=== PATIENT | female | born 1935 | race Caucasian/White ===

== ENCOUNTER → 2016-05-22 | Outpatient (CLI) | payer OTHER ==
[2014-04-27 15:00] VITALS: BP 115/64
[~2016-05-22] MED LIST: ACET500T33 PO; ATEN100T PO; ATEN50TA PO; CALC-67 PO; CELE100C PO; CELE200C PO; DIAZ5TAB PO; DILT300C4 PO; DULO60CA6 PO; FURO-68 PO; HYDR-2762 PO; LABE100T3 PO; LABE50DI IV; LEVO100T5 PO; LEVO750T31 PO; MELO-150 PO; MULT-658 PO; POTA20TA12 PO; PRED-220 PO; SIMV10TA3 PO
--- NOTE | 2016-05-23 00:01 | PAIN ---
DATE OF SERVICE: DIAGNOSES: 1. Lumbar radiculopathy with lumbar degenerative disk disease. 2. Bilateral shoulder joint pain with primary osteoarthritis of bilateral shoulders. HISTORY OF PRESENT ILLNESS: The patient is an 81-year-old female who returns for followup status post lumbar epidural steroid injections, last seen on 12/27/2015. The patient did very well with last injection with around 75%-80% improvement with her low back; however, her main complaint today is her shoulder pain, right greater than left. She has had some significant pain with this in the past and has done well with intra-articular cortisone injections, although it has been several years since she has had any of these with her right and left shoulder. The patient reports there is muscle aches and spasm in the shoulders as well, worse with abducting the shoulder or raising her arm above her head, is making it difficult for even to get dressed during the normal activities of daily living and daily chores. The patient reports it is becoming much more tender with abduction, also forward and rearward extension and rotation of the shoulder joints, right greater than left, but present bilaterally. The patient has audible popping and cracking sounds with right shoulder with manipulation and rotation of it, also with the left, but less audible. The patient reports significant pain into the biceps bilaterally, worse on the right than the left with movement of the shoulders. The patient rates her pain as 8 on a scale of 10, it grinds and pops, aching, spastic and sore. The patient reports no loss of motor function, but has significant arthritis in hands as well and this limits lot of her activity, regardless of the shoulder pain. PHYSICAL EXAMINATION: VITAL SIGNS: Today, blood pressure is 149/69, pulse 70, respirations 18, temperature is 98.2 degrees Fahrenheit, height is 5 feet 7 inches, and weight is 270 pounds. GENERAL: The patient is awake, alert, oriented, appropriate, very pleasant demeanor. The patient is accompanied by her daughter. HEENT: Head shows normocephalic, atraumatic. The patient wears eyeglasses. Oral cavity, mucous membranes are moist and pink. Extraocular muscles are intact and symmetrical. NECK: Shows anterior throat supple without palpable lymphadenopathy noted. Swallow reflex is symmetrical. Neck shows full rotational motion of cervical spine. CHEST: Shows normal on inspection. Breath sounds clear to auscultation bilaterally. HEART: Shows S1 and S2 clear. No murmurs are auscultated. ABDOMEN: Obese, soft, nontender, and nondistended. No palpable organomegaly is noted. No rebound or guarding demonstrated. BACK: Shows spine grossly midline. Normal appearing cervical lordotic curvature, slight increase in thoracic kyphosis and some mild flattening of lumbar lordotic curvature. Lumbar paraspinous musculature is moderately tender with deep palpation, but only diffusely without radiation. The patient shows good rotation and motion of the lumbar spine as well as extension and flexion without difficulty. The patient's upper extremities shows significant tenderness over the shoulder joints with palpation, not only over the acromioclavicular joint but into the medial aspect of the deltoid anteriorly as well as posteriorly significant pain with abduction of the shoulders, especially on the right side, past even 15-20 degrees with significant cracking and grinding audible even across the room with movement of the right shoulder, left shoulder less audible, but still present with significant tenderness with abduction as well as forward and rearward flexion and radiation to the bilateral biceps, ocean transportation intermediary strength is decreased on the left because of significant osteoarthritis of the hands, but is 5/5 on the right. Options were discussed with the patient. The patient's old chart was reviewed as her current medication regimen updated. Current review of systems updated today as well. We will schedule patient for bilateral intra-articular shoulder joint injections as she has done very well with these in the past with significant osteoarthritis of the shoulder joints and pain. We will have her preapproved and schedule her back to perform this in approximately 1 week as scheduled. The patient will continue with her Celebrex. Continue doing ____ exercises and as much rotational motion exercises that she is doing at home in the meantime. TAHIRA ARAYA MD DR: LILLY/devin JOB#: [id number] / [id number]
== END | disposition home or self-care (01) ==
LOC: PNCL 07:23
PROVIDERS: ATTEND Anesthesiology
DX: M51.16 Intervertebral disc disorders with radiculopathy, lumbar region (principal); M25.512 Pain in left shoulder; M25.511 Pain in right shoulder; M19.012 Primary osteoarthritis, left shoulder; M19.011 Primary osteoarthritis, right shoulder
CPT/HCPCS: G0463

== ENCOUNTER → 2016-06-12 | Outpatient (CLI) | payer OTHER ==
[2014-04-27 15:00] VITALS: BP 115/64
[~2016-06-12] MED LIST changes: +BUPIVACAINE MPF 0.25% 10 ML VIAL. ONE; +IOHEXOL 180 MG/ML 10 ML VIAL. ONE; +methylPREDNISolone ACETATE 40 MG/ML VIAL. ONE
--- NOTE | 2016-06-12 15:01 | PAIN ---
DATE OF SERVICE: 06/12/2016 PROGRESS NOTE FOR PAIN CLINIC DIAGNOSES: 1. Lumbar radiculopathy with lumbar degenerative disk disease. 2. Bilateral shoulder joint pain with primary osteoarthritis, bilateral shoulder joints. HISTORY OF PRESENT ILLNESS: The patient is an 81-year-old female who returns for followup, status post previous lumbar epidural steroid injections as well as shoulder joint injections. The patient has always done very well with these with about 75-100% improvement. The patient reports her shoulder joint has been significantly increasing in pain. We had seen her last month and had her preauthorized for injections with her insurance provider. The patient returns today reporting significant pain, bilateral shoulders, constant ache in the joints as well as the muscles of the joints, also some arthritic pain in the hands. We discussed some occupational therapy with her as well. She is still deciding if she will have to do this with her hands. The patient also is taking prednisone, which helps the pain significantly, but has only been taking 5 mg a day and requests to take more than this until she can see her primary care physician, we will take care of this for her in the meantime. The patient reports her pain now is a 5-6 on a scale of 10. It can be a lot higher with activity, worse with use of the shoulders, difficulty sleeping. The patient reports it as aching and dull, stabbing and occasionally sharper pains in the muscles and joints, worse on the right side than the left, but present bilaterally in the shoulders themselves. The patient reports no new motor or sensory deficits, no new bowel or bladder incontinence or other complaints. PHYSICAL EXAMINATION: VITAL SIGNS: Today, the patient's blood pressure is 143/67, pulse 71, respirations 18, temperature 97.9 degrees Fahrenheit. GENERAL: The patient is awake, alert, oriented, appropriate, has very pleasant demeanor. HEENT: Head shows normocephalic, atraumatic. Extraocular movements are intact and symmetrical. Oral cavity shows mucous membranes moist and pink. Dentition is intact. NECK: Shows anterior throat supple. CHEST: Shows breath sounds clear to auscultation bilaterally. HEART: Shows S1 and S2 clear. ABDOMEN: Obese, soft, nontender, nondistended. No palpable organomegaly is noted. No rebound or guarding demonstrated. BACK: The patient's back shows spine grossly midline, exaggeration mildly of thoracic kyphotic curvature as well as some flattening of lumbar lordotic curvature. Moderate tenderness with palpation in the lumbar distribution of the paraspinous muscles bilaterally, but without significant radiation. The patient's upper extremities show shoulders with significant pain with abduction of the shoulders as well as forward and rearward rotation of motion with some significant tenderness bilaterally with rotation especially with external rotation and abduction of the shoulders, which is limited to only about 15-20 degrees on the right and about 40 degrees on the left with significant pain in the shoulder joints themselves. PLAN: Options were discussed with the patient. At this time, the patient's old chart was reviewed as was her current medication regimen and updated. Current review of systems updated today as well. We will proceed with bilateral intra-articular shoulder joint injections with fluoroscopic guidance today. Risks were again discussed including, but not limited to bleeding, infection, possibility of intravascular injection sequelae, pneumothorax, side effects of steroid medication, spread of local anesthetic and numbness as well as exposure to fluoroscopy and poor results regarding pain control. The patient understands and wishes to proceed. The patient will return to the clinic in approximately 2 weeks for followup. She was given refill prescription of prednisone with instructions, side effects to be aware of as well, once daily at 10 mg until she can see her primary care physician to adjust this further if necessary. The patient also will consider occupational therapy. We discussed this with she and her daughter today as well for potential followup with increased mobility and occupational therapy movements with her hands. She does have some significant difficulty especially with the left hand. She will consider this, would like to talk to her primary care physician once again prior to going forward with this. I have directed her to call if she would like for us to set this up for her. The patient will follow up in approximately 2 weeks as scheduled and let us see. DIAGNOSIS: Bilateral primary osteoarthritis, shoulder joints. PROCEDURE: Bilateral intra-articular injections of the shoulder joints with fluoroscopic guidance using local anesthetic under sterile prep and drape using C-arm fluoroscopic guidance. Medications injected is a total of 80 mg Depo-Medrol, 40 mg per side and total of 4 mL of 0.25% bupivacaine, 2 mL per side and 2 mL at one per side of Isovue for contrast. CONDITION AT DISCHARGE: Stable. The patient tolerated the procedure well, had no complications. TAHIRA ARAYA MD DR: Anna JOB#: [id number] / [id number]
== END | disposition home or self-care (01) ==
LOC: PNCL 07:35
PROVIDERS: ATTEND Anesthesiology
DX: M19.012 Primary osteoarthritis, left shoulder (principal); M19.011 Primary osteoarthritis, right shoulder; M51.16 Intervertebral disc disorders with radiculopathy, lumbar region; E78.00 Pure hypercholesterolemia, unspecified; I10 Essential (primary) hypertension; I48.91 Unspecified atrial fibrillation; K21.9 Gastro-esophageal reflux disease without esophagitis; E03.9 Hypothyroidism, unspecified; Z90.710 Acquired absence of both cervix and uterus; Z90.49 Acquired absence of other specified parts of digestive tract; Z87.39 Personal history of other diseases of the musculoskeletal system and connective tissue
CPT/HCPCS: 20610; J1030; J3490

== ENCOUNTER → 2016-10-05 | Outpatient (CLI) | payer OTHER ==
[2014-04-27 15:00] VITALS: BP 115/64
[~2016-10-05] MED LIST changes: -BUPIVACAINE MPF 0.25% 10 ML VIAL. ONE; +CALC-31 PO; -CALC-67 PO; -IOHEXOL 180 MG/ML 10 ML VIAL. ONE; -MELO-150 PO; +MELO15TA23 PO; -methylPREDNISolone ACETATE 40 MG/ML VIAL. ONE
== END | disposition home or self-care (01) ==
LOC: PNCL 13:28
PROVIDERS: ATTEND Anesthesiology
DX: M51.37 Other intervertebral disc degeneration, lumbosacral region (principal); M19.012 Primary osteoarthritis, left shoulder; M47.897 Other spondylosis, lumbosacral region
CPT/HCPCS: G0463

== ENCOUNTER → 2016-10-19 | Outpatient (CLI) | payer OTHER ==
[2014-04-27 15:00] VITALS: BP 115/64
[~2016-10-19] MED LIST changes: +IOHEXOL 180 MG/ML 10 ML VIAL. ONE; +methylPREDNISolone ACETATE 40 MG/ML VIAL. ONE; +methylPREDNISolone ACETATE 80 MG/ML VIAL. ONE
--- NOTE | 2016-10-19 09:38 | PN ---
DATE: 10/19/2016 PROGRESS NOTE FOR PAIN CLINIC DIAGNOSES: 1. Lumbar radiculopathy with lumbar degenerative disk disease. 2. Bilateral shoulder joint pain with osteoarthritis. HISTORY OF PRESENT ILLNESS: The patient is an 81-year-old female who returns for followup status post previous lumbar epidural steroid injections with good results as well as intra-articular shoulder injections with also good results. The patient reports the pain has been returning now significantly. We did have a delay from her last visit secondary to insurance preapproval for her procedure today. This has been approved now for lumbar epidural steroid injection and she would like to proceed with that. The patient reports significant pain in the low back, bilateral lower extremities, radiating, worse on the right than the left at this time. The patient reports it as 7-8 on a scale of 10. It is worse. It is currently 5-6 on a scale of 10 today. The patient reports no new motor or sensory deficits, described the pain as aching, burning, tingling, shooting and stabbing, again worse on the right side, mostly in the posterolateral aspect of the hip, thigh and into the lower leg into the toes as well . The patient reports no other complaints. PHYSICAL EXAMINATION: VITAL SIGNS: The patient's blood pressure is 166/90, pulse 68, respirations 20, temperature 97.8 degrees Fahrenheit. GENERAL: The patient is awake, alert, oriented, appropriate, has a very pleasant demeanor. HEENT: Head shows normocephalic, atraumatic. Extraocular movements are intact and symmetrical. Oral cavity shows mucous membranes moist and pink. Dentition is intact. NECK: Shows anterior throat supple without palpable lymphadenopathy noted. Swallow reflex is symmetrical. CHEST: Shows normal on inspection. Breath sounds are clear to auscultation bilaterally. HEART: Shows S1 and S2 clear. ABDOMEN: Obese, soft, nontender, nondistended. No palpable organomegaly. There is no rebound or guarding demonstrated. BACK: Shows spine grossly in the midline, increased exaggeration of thoracic kyphosis is noted as well as some flattening of lumbar lordotic curvature. Lumbar paraspinous musculature shows symmetrical, but is tender with palpation bilaterally diffusely without radiation. EXTREMITIES: The patient's lower extremities show deep tendon reflexes at 1+ in the patellar and tendo calcaneus tendons. Motor exam is approximately 3-4 on a scale of 5 on the left ankle with 5/5 on the right. The patient's upper extremities show significant tenderness with rotational motion of the shoulders, both bilaterally with palpable crepitus and ratcheting of the joints with external rotation as well as anterior rotation. Options were discussed with the patient. The patient's old chart was reviewed as her current medication regimen and updated. Current review of systems updated today as well and we will proceed with lumbar epidural steroid injection with fluoroscopic guidance. Risks were again discussed including, but not limited to bleeding, infection, possibility of epidural hematoma, subsequent neurologic compromise, dural puncture, headaches, spinal cord and/or nerve damage, side effects of steroid medication and poor results regarding pain control. The patient understands and wishes to proceed. The patient will return to the clinic in approximately 2 weeks for followup, was counseled on return appointment, activity level and side effects to be aware of. DIAGNOSIS: Lumbar radiculopathy with lumbar degenerative disk disease. PROCEDURE: Lumbar epidural steroid injection in translaminar approach at L5-S1 level using C-arm fluoroscopic guidance under sterile prep and drape using local anesthetic. Medication injected is 120 mg Depo-Medrol plus 10 mL preservative-free normal saline and 2 mL of Isovue for contrast. CONDITION AT DISCHARGE: Stable. The patient tolerated the procedure well, had no complications. TAHIRA ARAYA MD DR: LILLY/devin JOB#: [id number] / [id number]
== END | disposition home or self-care (01) ==
LOC: PNCL 07:35
PROVIDERS: ATTEND Anesthesiology
DX: M51.16 Intervertebral disc disorders with radiculopathy, lumbar region (principal); E78.00 Pure hypercholesterolemia, unspecified; I48.91 Unspecified atrial fibrillation; I10 Essential (primary) hypertension; E03.9 Hypothyroidism, unspecified; M19.90 Unspecified osteoarthritis, unspecified site; K21.9 Gastro-esophageal reflux disease without esophagitis; Z90.710 Acquired absence of both cervix and uterus; Z86.69 Personal history of other diseases of the nervous system and sense organs; Z90.49 Acquired absence of other specified parts of digestive tract; Z86.39 Personal history of other endocrine, nutritional and metabolic disease; Z88.0 Allergy status to penicillin; Z88.8 Allergy status to other drugs, medicaments and biological substances
CPT/HCPCS: 62323; J1030; J1040

== ENCOUNTER → 2016-10-27 | Outpatient (CLI) | payer OTHER ==
[2014-04-27 15:00] VITALS: BP 115/64
[~2016-10-27] MED LIST changes: +BUPIVACAINE MPF 0.25% 10 ML VIAL. ONE
--- NOTE | 2016-10-27 20:00 | PAIN ---
DATE OF SERVICE: 10/27/2016 PROGRESS NOTE FOR PAIN CLINIC DIAGNOSES: 1. Lumbar radiculopathy with lumbar degenerative disk disease. 2. Bilateral shoulder joint pain with osteoarthritis primarily in the bilateral shoulders. HISTORY OF PRESENT ILLNESS: The patient is an 81-year-old who returns for followup status post lumbar epidural steroid injection on 10/19/2016. The patient did very well about 75% improvement in her low back and bilateral lower extremity pain. The patient reports her main complaint today is shoulder pain with the right slightly worse than the left, but increasing, now she has been using her walker more actively, as she has been up and around more as her back is feeling better and is starting to exacerbate some of the shoulder pain that she has had in the past. The patient reports no new motor or sensory deficits; however, no new bowel or bladder incontinence or other complaints. The patient reports she feels much better with lying down. She has no trouble with sleeping at night currently because of the back or the shoulders. The patient reports that the shoulders are aching and dull with occasional sharp shooting pain in the front of the shoulder as well, more with using her walker. The patient reports it is anywhere from a 3-7 on a scale 10 and it is 4 on a scale of 10 today. PHYSICAL EXAMINATION: VITAL SIGNS: The patient's blood pressure is 153/58, pulse 76, respirations 18, temperature 98.1 degrees Fahrenheit. Height is 5 feet 7 inches, weight is 275 pounds. GENERAL: The patient is awake, alert, oriented, appropriate, very pleasant demeanor. HEENT: Head shows normocephalic, atraumatic. Extraocular movements are intact, symmetrical. Oral cavity, mucous membranes are moist and pink. NECK: Shows anterior throat supple. CHEST: Shows normal on inspection. Breath sounds are clear to auscultation bilaterally. HEART: Shows S1 and S2 clear. ABDOMEN: Soft, nontender, nondistended. BACK: Shows spine grossly in the midline. Lumbar paraspinous musculature shows some very mild tenderness with palpation but only diffusely, in the lower lumbar distribution only very mildly. The patient shows good rotational motion as well as extension and flexion of lumbar spine without difficulty. EXTREMITIES: The patient's lower extremities showed deep tendon reflexes 1+ in the patellar and tendo calcaneus tendons. Motor exam is approximately 3-4 on a scale of 5 with left ankle and 5/5 on the right. The patient's upper extremities shows significant tenderness with palpation over the acromioclavicular joints bilaterally, a little more tender on the right than the left, but present and tender bilaterally. The patient shows difficulty with abduction of the shoulders, especially on the right side greater than about 40 degrees from midline with significant pain reported, also very tender with ____ and pain in the anterior and posterior aspect of the acromioclavicular joint itself. Motor exam is strong with manager administration strength rated about a 4 on a scale of 5 slightly more strong on the right than the left. The patient is right handed and does have some left-handed deformity from osteoarthritis. Biceps and triceps flexion is about 3-4 on a scale of 5, but is equal bilaterally. Peripheral pulses are 2+ in the radial distribution. Options were discussed with the patient and the patient's old chart was reviewed as her current medication regimen updated. Current review of systems updated today as well. We will proceed with bilateral acromioclavicular joint injections with fluoroscopic guidance. Risks were again discussed including, but not limited to bleeding, infection, possibility of intravascular injection sequelae, spread of local anesthetic and numbness, side effects of steroid medication and poor results regarding pain control. The patient understands and wishes to proceed. The patient will return to clinic in approximately 2 weeks for followup, was counseled on return appointment, activity level and side effects to be aware of. DIAGNOSIS: Bilateral primary osteoarthritis of acromioclavicular joints of the shoulder. PROCEDURE: Bilateral acromioclavicular joint injections with fluoroscopic guidance under sterile prep and drape using local anesthetic. MEDICATIONS INJECTED: A total of 120 mg Depo-Medrol plus 4 mL total of 0.25% bupivacaine and a total of 2 mL of Isovue for contrast. CONDITION AT DISCHARGE: Stable. The patient tolerated procedure well, had no complications. TAHIRA ARAYA MD DR: LILLY/devin JOB#: [id number] / [id number]
== END | disposition home or self-care (01) ==
LOC: PNCL 10:12
PROVIDERS: ATTEND Anesthesiology
DX: M19.012 Primary osteoarthritis, left shoulder (principal); M19.011 Primary osteoarthritis, right shoulder; E78.00 Pure hypercholesterolemia, unspecified; I48.91 Unspecified atrial fibrillation; I10 Essential (primary) hypertension; M19.90 Unspecified osteoarthritis, unspecified site; E03.9 Hypothyroidism, unspecified; Z90.49 Acquired absence of other specified parts of digestive tract; Z90.710 Acquired absence of both cervix and uterus; Z87.39 Personal history of other diseases of the musculoskeletal system and connective tissue; Z86.39 Personal history of other endocrine, nutritional and metabolic disease; Z86.69 Personal history of other diseases of the nervous system and sense organs; Z88.0 Allergy status to penicillin; Z88.8 Allergy status to other drugs, medicaments and biological substances
CPT/HCPCS: 20605; J1030; J1040; J3490

== ENCOUNTER 2018-04-05 11:44 | Inpatient (IN) | payer OTHER ==
[~2018-04-05] VITALS: Ht 172.7 cm; Wt 117.9 kg
[~2018-04-05 11:44] MED LIST changes: -BUPIVACAINE MPF 0.25% 10 ML VIAL. ONE; -HYDR-2762 PO; +HYDR-2765 PO; -IOHEXOL 180 MG/ML 10 ML VIAL. ONE; -LABE100T3 PO; +LABE100T5 PO; -methylPREDNISolone ACETATE 40 MG/ML VIAL. ONE; -methylPREDNISolone ACETATE 80 MG/ML VIAL. ONE
--- NOTE | 2018-04-05 12:37 | EKG ---
[facility] [address] [place] [id number] Test Date: 2018-04-05 Test Time: 11:55:36 Pat Name: CUCA CHAVEZ Department: Room: Gender: F [employer]ing Backer: PRAVEENA : 1935 Requested By: JOVANY CARLSON Order Number: [id number] Reading MD: Ceferino Fink Measurements Intervals Dry Run Rate: 87 P: 152 CO: 188 QRS: -153 QRSD: 86 T: 147 QT: 358 QTc: 431 Interpretive Statements SINUS RHYTHM QRS(T) CONTOUR ABNORMALITY CONSISTENT WITH ANTEROSEPTAL INFARCT PROBABLY OLD CONSISTENT WITH HIGH LATERAL INFARCT AGE UNDETERMINED ABNORMAL ECG Electronically Signed On 04-09-2018 9:39:16 RELATIONS DIRECTOR by Ceferino Fink
--- NOTE | 2018-04-05 12:48 | PHYS DOC ---
Past Medical History Past Medical History: A-Fib, High Cholesterol, Hypertension Additional Past Medical Histor: back pain Past Surgical History: Cholecystectomy, Hysterectomy, Tonsillectomy Alcohol Use: None Drug Use: None Adult General Chief Complaint Chief Complaint: shoulder and back pain HPI HPI 82-year-old female presenting to the emergency department today with upper back pain and shoulder pain for the past 3 days. The pain comes and goes. The patient has had a cough since [place] with minimal production which is currently improving significantly. Her family states she barely has a cough these days. The pain is now completely subsided. She denies any chest pain or shortness of breath. Review of systems is negative for abdominal pain vomiting fevers chills or diaphoresis. All other review of systems is negative unless otherwise noted in history of present illness. ED course: 82-year-old female presenting to the emergency department today with right upper back pain and shoulder pain. Afebrile with a normal heart rate. Saturating 94% on room air. Blood pressure is elevated. Normal examination other than mild pain with passive range of motion of the shoulder. Blood work shows normal white blood cell count. Chemistry panel shows elevated BUN and creatinine. 1.3 today. Previous was 1 on March 2014. Otherwise troponin is within normal limits. D-dimer is elevated. We will order a CT angiogram. In the interim given her hypoxia we will need to get a bed for her in the hospital. I spoke with Dr. Leary who accepts the patient for admission. Unfortunately because the patient's elevated creatinine and decreased GFR at our hospital policy will not allow the patient to get an angiogram of the chest. We will need to order a VQ scan. I will go ahead and get a bed requested for the patient. Dr. Leary and I spoke and I communicated the findings with him including a pending VQ scan at this time. Dr. Leary will follow up on the VQ scan. In the interim I will initiate 1 dose of Lovenox to cover in case the patient does have a pulmonary embolism. Basic bridge orders placed. Review of Systems Review of Systems SEE ABOVE. Current Medications Current Medications Current Medications Medications (Trade) Dose Ordered Sig/Mark Start Time Stop Time Status Last Admin Dose Admin Sodium Chloride 1,000 ml @ 100 mls/hr Q10H 04/05/18 14:54 04/05/18 18:53 Allergies Allergies Allergies Coded Allergies Type Severity Reaction Last Updated Verified gabapentin Allergy Severe Swelling 07/24/13 Yes Penicillins Adverse Reaction Intermediate Rash 07/24/13 Yes clonidine Adverse Reaction Intermediate "crazy feeling" 07/24/13 Yes Physical Exam Physical Exam SEE ABOVE Constitutional: Well developed, well nourished, no acute distress, non-toxic appearance. [] HENT: Normocephalic, atraumatic, bilateral external ears normal, oropharynx moist, no oral exudates, nose normal. [] Eyes: PERRLA, EOMI, conjunctiva normal, no discharge. [] Neck: Normal range of motion, no tenderness, supple, no stridor. [] Cardiovascular:Heart rate regular rhythm, no murmur [] Lungs & Thorax: Bilateral breath sounds clear to auscultation [] Abdomen: Bowel sounds normal, soft, no tenderness, no masses, no pulsatile masses. [] Skin: Warm, dry, no erythema, no rash. [] Back: No tenderness, no CVA tenderness. [] Extremities: No tenderness, no cyanosis, no clubbing, ROM intact, no edema. [] Neurologic: Alert and oriented X 3, normal motor function, normal sensory function, no focal deficits noted. [] Psychologic: Affect normal, judgement normal, mood normal. [] Current Patient Data Vital Signs Vital Signs Date Time Temp Pulse Resp B/P (MAP) Pulse Ox O2 Delivery O2 Flow Rate FiO2 04/05/18 12:04 98.4 94 16 169/80 (109) 94 Room Air 98.4 Lab Values Laboratory Tests Test 04/05/18 12:45 04/05/18 14:00 White Blood Count 10.6 x10^3/uL (4.0-11.0) Red Blood Count 4.67 x10^6/uL (3.50-5.40) Hemoglobin 14.3 g/dL (12.0-15.5) Hematocrit 43.3 % (36.0-47.0) Mean Corpuscular Volume 93 fL (79-100) Mean Corpuscular Hemoglobin 31 pg (25-35) Mean Corpuscular Hemoglobin Concent 33 g/dL (31-37) Red Cell Distribution Width 14.3 % (11.5-14.5) Platelet Count 332 x10^3/uL (140-400) Neutrophils (%) (Auto) 85 % (31-73) H Lymphocytes (%) (Auto) 8 % (24-48) L Monocytes (%) (Auto) 6 % (0-9) Eosinophils (%) (Auto) 1 % (0-3) Basophils (%) (Auto) 1 % (0-3) Neutrophils # (Auto) 9.0 x10^3uL (1.8-7.7) H Lymphocytes # (Auto) 0.8 x10^3/uL (1.0-4.8) L Monocytes # (Auto) 0.6 x10^3/uL (0.0-1.1) Eosinophils # (Auto) 0.1 x10^3/uL (0.0-0.7) Basophils # (Auto) 0.1 x10^3/uL (0.0-0.2) D-Dimer (Arti) 1.22 ug/mlFEU (0.00-0.50) H Sodium Level 142 mmol/L (136-145) Potassium Level 4.2 mmol/L (3.5-5.1) Chloride Level 99 mmol/L (98-107) Carbon Dioxide Level 32 mmol/L (21-32) Anion Gap 11 (6-14) Blood Urea Nitrogen 24 mg/dL (7-20) H Creatinine 1.3 mg/dL (0.6-1.0) H Estimated GFR (Cockcroft-Gault) 39.1 Glucose Level 164 mg/dL (70-99) H Calcium Level 9.4 mg/dL (8.5-10.1) Total Bilirubin 0.8 mg/dL (0.2-1.0) Direct Bilirubin 0.2 mg/dL (0.0-0.2) Aspartate Amino Transferase (AST) 19 U/L (15-37) Alanine Aminotransferase (ALT) 25 U/L (14-59) Alkaline Phosphatase 133 U/L (46-116) H Troponin I Quantitative < 0.017 ng/mL (0.000-0.055) WP-Lyb-V-Type Natriuretic Peptide 96 pg/mL (0-449) Total Protein 7.1 g/dL (6.4-8.2) Albumin 3.5 g/dL (3.4-5.0) Lipase 101 U/L (73-393) Urine Collection Type Unknown Urine Color Yellow Urine Clarity Clear Urine pH 7.0 Urine Specific [place] 1.015 Urine Protein Negative mg/dL (NEG-TRACE) Urine Glucose (UA) Negative mg/dL (NEG) Urine Ketones (Stick) Negative mg/dL (NEG) Urine Blood Negative (NEG) Urine Nitrite Negative (NEG) Urine Bilirubin Negative (NEG) Urine Urobilinogen Dipstick 1.0 mg/dL (0.2 mg/dL) Urine Leukocyte Esterase Negative (NEG) Urine RBC 0 /HPF (0-2) Urine WBC 0 /HPF (0-4) Urine Squamous Epithelial Cells Few /LPF Urine Bacteria 0 /HPF (0-FEW) Urine Hyaline Casts Few /HPF Urine Mucus Slight /LPF Laboratory Tests 04/05/18 12:45 Laboratory Tests 04/05/18 12:45 EKG EKG [] Radiology/Procedures Radiology/Procedures [] Course & Med Decision Making Course & Med Decision Making Pertinent Labs and Imaging studies reviewed. (See chart for details) [] Dragon Disclaimer Dragon Disclaimer This electronic medical record was generated, in whole or in part, using a voice recognition dictation system. Departure Departure Impression: Primary Impression: Hypoxia Disposition: ADMITTED INPATIENT Admitting Physician: Serge Leary Condition: STABLE Referrals: NON,STAFF (PCP) JOVANY CARLSON MD Apr 05, 2018 12:48
--- NOTE | 2018-04-05 12:54 | RAD ---
EXAM: CHEST 1 VIEW History: Hypoxia COMPARISON: 04/24/2014 TECHNIQUE: Single portable radiograph of the chest FINDINGS: Low lung volumes and technique accentuates heart size and pulmonary vascularity. Mild prominent appearing bilateral interstitial lung markings likely chronic interstitial changes. 1.8 cm linear opacity identified in the right midlung zone could be a pleural plaque or nodule. Severe degenerative changes bilateral shoulder joints. IMPRESSION: 1. A linear 1.8 cm opacity identified in the right midlung zone could be pleural plaque or nodule. Electronically signed by: Vincenzo Mcdermott MD (04/05/2018 12:50 PM) [id number]
[2018-04-05 12:56] LABS: BASO # 0.1 x10^3/uL (0.0-0.2); BASO % 1 % (0-3); EOS # 0.1 x10^3/uL (0.0-0.7); EOS % 1 % (0-3); HEMATOCRIT 43.3 % (36.0-47.0); HEMOGLOBIN 14.3 g/dL (12.0-15.5); LYMPH # 0.8 x10^3/uL (1.0-4.8); LYMPH % 8 % (24-48); MEAN CORPUSCULAR HEMOGLOBIN 31 pg (25-35); MEAN CORPUSCULAR HGB CONC 33 g/dL (31-37); MEAN CORPUSCULAR VOLUME 93 fL (79-100); MONO # 0.6 x10^3/uL (0.0-1.1); MONO % 6 % (0-9); NEUT % 85 % (31-73); PLATELET COUNT 332 x10^3/uL (140-400); RED BLOOD COUNT 4.67 x10^6/uL (3.50-5.40); RED CELL DISTRIBUTION WIDTH 14.3 % (11.5-14.5); WHITE BLOOD COUNT 10.6 x10^3/uL (4.0-11.0)
[2018-04-05 13:09] LABS: CALCIUM 9.4 mg/dL (8.5-10.1); CREATININE 1.3 mg/dL (0.6-1.0); GFR 39.1; POTASSIUM 4.2 mmol/L (3.5-5.1)
[2018-04-05 13:17] LABS: ALBUMIN 3.5 g/dL (3.4-5.0); DIRECT BILIRUBIN 0.2 mg/dL (0.0-0.2); TOTAL BILIRUBIN 0.8 mg/dL (0.2-1.0); TOTAL PROTEIN 7.1 g/dL (6.4-8.2)
[2018-04-05 14:31] LABS: BILIRUBIN,URINE NEGATIVE (NEG); CLARITY,URINE CLEAR; COLOR,URINE YELLOW; NITRITE,URINE NEGATIVE (NEG); PROTEIN,URINE NEGATIVE (NEG-TRACE)
[2018-04-05 14:51] LABS: HYALINE CASTS, URINE FEW /HPF; SQUAMOUS EPITHELIAL CELL,UR FEW /LPF
[2018-04-05 14:52] LABS: BACTERIA,URINE 0 /HPF (0-FEW); RBC,URINE 0 /HPF (0-2); WBC,URINE 0 /HPF (0-4)
[2018-04-05] MEDS ORDERED: IV NORMAL SALINE 1000ML BAG 1,000 ML IV SCH (14:54)
[2018-04-05 19:10] VITALS: BP 169/72
[2018-04-05] MEDS: HYDROcodone/APAP 7.5/325MG 1 TAB TABLET PO PRN (20:39)
[2018-04-05] MEDS: LABETALOL HCL 100 MG TABLET. PO SCH (20:40)
--- NOTE | 2018-04-05 21:32 | RAD ---
Examination: LUNG VENT/PERFUSION SCAN(VQ) History: soa x 1 month Comparison/Correlation: 04/05/2018 portable chest x-ray exam Findings: AP millicuries xenon-133 gas was administered. Ventilation imaging was performed in the posterior projection. No ventilation defect of point seen. 5 mCi technetium 99m MAA was intravenously administered. Relatively less perfusion at the right lateral costophrenic angle basilar region is questioned. There is no definite segmental mismatch defect. No significant mass effect. Impression: Low to intermediate probability for pulmonary embolism. Electronically signed by: Tomás Cheng MD (04/05/2018 9:27 PM) [facility]
[2018-04-05 23:15] VITALS: BP_SYST 127; BP_SYST 169; BP_DIAS 54; BP_DIAS 82
[2018-04-06] VITALS (7 sets, daily range): BP systolic 129–182; BP diastolic 44–87
[2018-04-06] MEDS: HYDROcodone/APAP 7.5/325MG 1 TAB TABLET PO PRN ×3 (02:42→17:35)
[2018-04-06 04:50] LABS: BASO # 0.1 x10^3/uL (0.0-0.2); BASO % 1 % (0-3); EOS # 0.2 x10^3/uL (0.0-0.7); EOS % 2 % (0-3); HEMATOCRIT 40.7 % (36.0-47.0); HEMOGLOBIN 13.6 g/dL (12.0-15.5); LYMPH # 1.8 x10^3/uL (1.0-4.8); LYMPH % 17 % (24-48); MEAN CORPUSCULAR HEMOGLOBIN 31 pg (25-35); MEAN CORPUSCULAR HGB CONC 33 g/dL (31-37); MEAN CORPUSCULAR VOLUME 93 fL (79-100); MONO # 1.1 x10^3/uL (0.0-1.1); MONO % 10 % (0-9); NEUT # 7.4 x10^3uL (1.8-7.7); NEUT % 70 % (31-73); PLATELET COUNT 333 x10^3/uL (140-400); RED BLOOD COUNT 4.37 x10^6/uL (3.50-5.40); RED CELL DISTRIBUTION WIDTH 14.3 % (11.5-14.5); WHITE BLOOD COUNT 10.6 x10^3/uL (4.0-11.0)
[2018-04-06 05:04] LABS: CALCIUM 9.3 mg/dL (8.5-10.1); CREATININE 1.1 mg/dL (0.6-1.0); GFR 47.4; POTASSIUM 3.3 mmol/L (3.5-5.1)
[2018-04-06] MEDS ORDERED: hydrALAZINE 20 MG/ML VIAL. IVP PRN (05:30)
[2018-04-06] MEDS: LABETALOL HCL 100 MG TABLET. PO SCH ×2 (08:08→21:18)
[2018-04-06] MEDS: ALPRAZolam 0.25 MG TABLET PO PRN ×2 (11:18→21:18)
--- NOTE | 2018-04-06 11:30 | PDOC ---
GENERAL General: see dictated H&P. VITAL SIGNS Vital Signs: Vital Signs Date Time Temp Pulse Resp B/P (MAP) Pulse Ox O2 Delivery O2 Flow Rate FiO2 04/06/18 09:37 20 Nasal Cannula 3.0 04/06/18 08:54 87 146/79 (101) 04/06/18 07:00 98.3 94 98.3 I & O I & O Intake and Output 04/06/18 07:01 Intake Total 880 ml Balance 880 ml Intake Oral 880 ml # Voids 1 ALLERGIES Allergies: Allergies Coded Allergies Type Severity Reaction Last Updated Verified gabapentin Allergy Severe Swelling 07/24/13 Yes Penicillins Adverse Reaction Intermediate Rash 07/24/13 Yes clonidine Adverse Reaction Intermediate "crazy feeling" 07/24/13 Yes MEDS Medications: Current Medications Medications (Trade) Dose Ordered Sig/Mark Start Time Stop Time Status Last Admin Dose Admin Acetaminophen/ Hydrocodone Bitart (Lortab 7.5/325) 1 tab PRN Q6HRS PRN 04/05/18 20:15 04/06/18 09:37 1 TAB Alprazolam (Xanax) 0.25 mg PRN Q8HRS PRN 04/06/18 10:45 04/06/18 11:18 0.25 MG Enoxaparin Sodium (Lovenox 120mg Syringe) 120 mg 1X ONCE 04/05/18 16:00 04/05/18 16:01 DC 04/05/18 16:00 120 MG Hydralazine HCl (Apresoline Inj) 10 mg PRN Q4HRS PRN 04/06/18 05:30 04/06/18 05:48 10 MG Labetalol HCl (Trandate) 200 mg BID 04/05/18 21:00 04/06/18 08:08 200 MG Sodium Chloride 1,000 ml @ 100 mls/hr Q10H 04/05/18 14:54 04/05/18 18:53 DC 04/05/18 14:54 100 MLS/HR LAB Lab: Laboratory Tests Test 04/05/18 12:45 04/05/18 14:00 04/06/18 03:50 White Blood Count 10.6 x10^3/uL (4.0-11.0) 10.6 x10^3/uL (4.0-11.0) Red Blood Count 4.67 x10^6/uL (3.50-5.40) 4.37 x10^6/uL (3.50-5.40) Hemoglobin 14.3 g/dL (12.0-15.5) 13.6 g/dL (12.0-15.5) Hematocrit 43.3 % (36.0-47.0) 40.7 % (36.0-47.0) Mean Corpuscular Volume 93 fL (79-100) 93 fL (79-100) Mean Corpuscular Hemoglobin 31 pg (25-35) 31 pg (25-35) Mean Corpuscular Hemoglobin Concent 33 g/dL (31-37) 33 g/dL (31-37) Red Cell Distribution Width 14.3 % (11.5-14.5) 14.3 % (11.5-14.5) Platelet Count 332 x10^3/uL (140-400) 333 x10^3/uL (140-400) Neutrophils (%) (Auto) 85 % (31-73) 70 % (31-73) Lymphocytes (%) (Auto) 8 % (24-48) 17 % (24-48) Monocytes (%) (Auto) 6 % (0-9) 10 % (0-9) Eosinophils (%) (Auto) 1 % (0-3) 2 % (0-3) Basophils (%) (Auto) 1 % (0-3) 1 % (0-3) Neutrophils # (Auto) 9.0 x10^3uL (1.8-7.7) 7.4 x10^3uL (1.8-7.7) Lymphocytes # (Auto) 0.8 x10^3/uL (1.0-4.8) 1.8 x10^3/uL (1.0-4.8) Monocytes # (Auto) 0.6 x10^3/uL (0.0-1.1) 1.1 x10^3/uL (0.0-1.1) Eosinophils # (Auto) 0.1 x10^3/uL (0.0-0.7) 0.2 x10^3/uL (0.0-0.7) Basophils # (Auto) 0.1 x10^3/uL (0.0-0.2) 0.1 x10^3/uL (0.0-0.2) D-Dimer (Arti) 1.22 ug/mlFEU (0.00-0.50) Sodium Level 142 mmol/L (136-145) 142 mmol/L (136-145) Potassium Level 4.2 mmol/L (3.5-5.1) 3.3 mmol/L (3.5-5.1) Chloride Level 99 mmol/L (98-107) 102 mmol/L (98-107) Carbon Dioxide Level 32 mmol/L (21-32) 31 mmol/L (21-32) Anion Gap 11 (6-14) 9 (6-14) Blood Urea Nitrogen 24 mg/dL (7-20) 19 mg/dL (7-20) Creatinine 1.3 mg/dL (0.6-1.0) 1.1 mg/dL (0.6-1.0) Estimated GFR (Cockcroft-Gault) 39.1 47.4 Glucose Level 164 mg/dL (70-99) 111 mg/dL (70-99) Calcium Level 9.4 mg/dL (8.5-10.1) 9.3 mg/dL (8.5-10.1) Total Bilirubin 0.8 mg/dL (0.2-1.0) Direct Bilirubin 0.2 mg/dL (0.0-0.2) Aspartate Amino Transf (AST/SGOT) 19 U/L (15-37) Alanine Aminotransferase (ALT/SGPT) 25 U/L (14-59) Alkaline Phosphatase 133 U/L (46-116) Troponin I Quantitative < 0.017 ng/mL (0.000-0.055) HW-Dwp-F-Type Natriuretic Peptide 96 pg/mL (0-449) Total Protein 7.1 g/dL (6.4-8.2) Albumin 3.5 g/dL (3.4-5.0) Lipase 101 U/L (73-393) Urine Collection Type Unknown Urine Color Yellow Urine Clarity Clear Urine pH 7.0 Urine Specific [place] 1.015 Urine Protein Negative mg/dL (NEG-TRACE) Urine Glucose (UA) Negative mg/dL (NEG) Urine Ketones (Stick) Negative mg/dL (NEG) Urine Blood Negative (NEG) Urine Nitrite Negative (NEG) Urine Bilirubin Negative (NEG) Urine Urobilinogen Dipstick 1.0 mg/dL (0.2 mg/dL) Urine Leukocyte Esterase Negative (NEG) Urine RBC 0 /HPF (0-2) Urine WBC 0 /HPF (0-4) Urine Squamous Epithelial Cells Few /LPF Urine Bacteria 0 /HPF (0-FEW) Urine Hyaline Casts Few /HPF Urine Mucus Slight /LPF LUCIANO ADAMS MD Apr 06, 2018 11:30
--- NOTE | 2018-04-06 11:59 | HP ---
ADMIT DATE: 04/05/[address] Alvarez Leary. CHIEF COMPLAINT AND HISTORY OF PRESENT ILLNESS: This 82-year-old white female began coughing on [place], had a respiratory type infection, which has improved; however, since that time and gradually has developed what was initially described as interscapular pain now moving more to the right side. It is worse with bending or twisting suggesting a muscular component. There is no worsening with breath. She has become progressively short of breath, which she has attributed to deconditioning, although she was not short of breath 3 weeks ago. She also feels like her heart beats very hard and very fast with any sort of exertion. She was found to be hypoxic in the Emergency Room, placed on oxygen with imaging in the Emergency Room showing a chest x-ray showing a 1.8-cm opacity identified in the right mid lung zone felt to be pleural plaque or nodule and had V/Q scanning done in addition showing low to intermediate probability for pulmonary embolism. Initial lab was remarkable for an unremarkable CBC, creatinine of 1.3, alkaline phosphatase of 133 and BNP of 96, troponin of 0.017. D-dimer elevated at 1.22. Urinalysis is unremarkable. PAST MEDICAL HISTORY: Remarkable for history of AFib, hyperlipidemia, hypertension as well as back pain. PAST SURGICAL HISTORY: Remarkable for cholecystectomy, hysterectomy, tonsillectomy. MEDICATIONS: Brought with the patient, listed on the computer and have been addressed. ALLERGIES: SHE IS ALLERGIC TO PENICILLIN, CLONIDINE, AND GABAPENTIN. SOCIAL HISTORY: Noncontributory. FAMILY HISTORY: Noncontributory. REVIEW OF SYSTEMS: As outlined in the history of present illness. PHYSICAL EXAMINATION: GENERAL: She is a well-developed, well-nourished, obese, white female in no acute distress, lying at rest. She has O2 present. VITAL SIGNS: Stable. She is afebrile. HEAD, EYES, EARS, NOSE AND THROAT: Unremarkable. NECK: Supple without adenopathy or thyromegaly. CHEST: Reveals clear breath sounds bilaterally. HEART: Regular rate and rhythm without S3, S4, or murmur. ABDOMEN: Soft, nontender, without hepatosplenomegaly or masses. EXTREMITIES: Without cyanosis, clubbing, or any pitting edema. NEUROLOGIC: She is intact. IMPRESSION: 1. Shortness of breath, palpitations and hypoxia following what sounds like a bronchitis about 3 weeks or so ago. 2. Other problems listed above. PLAN: The patient has been admitted. Pulmonary and Cardiology consult will be placed and the patient will be monitored, managed and treated appropriately. LUCIANO ADAMS MD DR: DONOVAN/devin JOB#: [id number] / [id number] ALVAREZ Keller MD
--- NOTE | 2018-04-06 12:43 | PDOC2 ---
CONSULT Date of Consult Date of Consult DATE: 04/06/18 TIME: 12:42 Reason for Consult Reason for Consult: Palpitations Referring Physician Referring Physician: Dr. Contreras Identification/Chief Complaint Chief Complaint Palpitations Source Source: Chart review, Patient History of Present Illness Reason for Visit: 82-year-old female with history of paroxysmal atrial fibrillation presented with interscapular pain and progressive shortness of breath. She also complained of intermittent episodes of palpitations mainly with exertion. She denied any orthopnea/PND or syncope. She was found to be hypoxic and admitted for further management. Past Medical History Cardiovascular: AFIB, HTN Pulmonary: No pertinent hx GI: GERD Heme/Onc: Cancer Musculoskeletal: low back pain, Osteoarthritis Rheumatologic: Fibromyalgia Renal/: Other Endocrine: Hypothyroidism Past Surgical History Past Surgical History: Appendectomy, Cholecystectomy, Mastectomy, Hysterectomy Current Problem List Problem List Problems Medical Problems: (1) Hypoxia Status: Acute Current Medications Current Medications Current Medications Sodium Chloride 1,000 ml @ 100 mls/hr Q10H IV Last administered on 04/05/18at 14:54; Start 04/05/18 at 14:54; Stop 04/05/18 at 18:53; Status DC Enoxaparin Sodium (Lovenox 120mg Syringe) 120 mg 1X ONCE SQ Last administered on 04/05/18at 16:00; Start 04/05/18 at 16:00; Stop 04/05/18 at 16:01; Status DC Acetaminophen/ Hydrocodone Bitart (Lortab 7.5/325) 1 tab PRN Q6HRS PRN PO PAIN Last administered on 04/06/18at 09:37; Start 04/05/18 at 20:15 Labetalol HCl (Trandate) 200 mg BID PO Last administered on 04/06/18at 08:08; Start 04/05/18 at 21:00 Hydralazine HCl (Apresoline Inj) 10 mg PRN Q4HRS PRN IVP ELEVATED BP, SEE COMMENTS Last administered on 04/06/18at 05:48; Start 04/06/18 at 05:30 Alprazolam (Xanax) 0.25 mg PRN Q8HRS PRN PO ANXIETY / AGITATION Last administered on 04/06/18at 11:18; Start 04/06/18 at 10:45 Furosemide (Lasix) 40 mg BID92 PO ; Start 04/06/18 at 14:00 Levothyroxine Sodium (Synthroid) 100 mcg DAILY06 PO ; Start 04/06/18 at 13:00 Potassium Chloride (Klor-Con) 20 meq BIDWMEALS PO ; Start 04/06/18 at 13:00 Prednisone (Prednisone) 5 mg DAILY PO ; Start 04/06/18 at 13:00 Simvastatin (Zocor) 10 mg QHS PO ; Start 04/06/18 at 21:00 Calcium/Vitamin D (Oscal D 500mg/ 200uts) 1 tab DAILYWBKFT PO ; Start 04/06/18 at 13:00 Celecoxib (CeleBREX) 200 mg DAILY PO ; Start 04/06/18 at 13:00 Diltiazem HCl (Cardizem 24hr Cd) 300 mg DAILY PO ; Start 04/06/18 at 13:00 Duloxetine HCl (Cymbalta) 60 mg DAILY PO ; Start 04/06/18 at 13:00 Multivitamins (Thera M Plus) 1 tab DAILY PO ; Start 04/06/18 at 13:00 Active Scripts Active Reported Prednisone (Prednisone) 10 Mg Tablet 5 Mg PO DAILY Celebrex (Celecoxib) 200 Mg Capsule 1 Cap PO DAILY Lasix (Furosemide) 40 Mg Tablet 40 Mg PO BID Hydrocodone-Apap 7.5-325 (Hydrocodone Bit/Acetaminophen) 1 Each Tablet 1 Each PO Q 6 HRS PRN Labetalol Hcl 100 Mg Tablet 200 Mg PO BID Calcium 500 + D Tablet (Calcium Carbonate/Vitamin D3) 1 Each Tablet 1 Each PO DAILY Centrum Silver Tablet (Multivits-Min/Fa/Lycopene/Lut) 1 Each Tablet 1 Each PO DAILY Cymbalta (Duloxetine Hcl) 60 Mg Capsule.dr 60 Mg PO DAILY Levothyroxine Sodium 100 Mcg Tablet 100 Mcg PO DAILY Simvastatin 10 Mg Tablet 10 Mg PO DAILY Potassium Chloride 20 Meq Tab.er.prt 20 Meq PO BID Diltiazem Xt (Diltiazem Hcl) 300 Mg Capsule.er 300 Mg PO DAILY Allergies Allergies: Coded Allergies: gabapentin (Verified Allergy, Severe, Swelling, 07/24/13) Penicillins (Verified Adverse Reaction, Intermediate, Rash, 07/24/13) clonidine (Verified Adverse Reaction, Intermediate, "crazy feeling", ) ROS PSYCHOLOGICAL ROS: No: Hallucinations Eyes: No Loss of vision HEENT: No: Epistaxis Respiratory: YES: Shortness of breath; No: Hemoptysis Cardiovascular: yes Palpitations Gastrointestinal: No Vomiting, No Diarrhea Genitourinary: No Hematuria Neurological: No Seizures Skin: No Rash Physical Exam General: Alert, mild distress HEENT: Atraumatic Lungs: Other (scattered crepitation bilaterally) Heart: Regular rate Abdomen: Soft, No tenderness Extremities: No edema Psych/Mental Status: Mood NL Vitals VITALS Vital Signs Date Time Temp Pulse Resp B/P (MAP) Pulse Ox O2 Delivery O2 Flow Rate FiO2 04/06/18 11:00 99.5 88 20 129/44 (72) 95 Nasal Cannula 3.0 99.5 Labs Labs Laboratory Tests Test 04/05/18 12:45 04/05/18 14:00 04/06/18 03:50 White Blood Count 10.6 x10^3/uL (4.0-11.0) 10.6 x10^3/uL (4.0-11.0) Red Blood Count 4.67 x10^6/uL (3.50-5.40) 4.37 x10^6/uL (3.50-5.40) Hemoglobin 14.3 g/dL (12.0-15.5) 13.6 g/dL (12.0-15.5) Hematocrit 43.3 % (36.0-47.0) 40.7 % (36.0-47.0) Mean Corpuscular Volume 93 fL (79-100) 93 fL (79-100) Mean Corpuscular Hemoglobin 31 pg (25-35) 31 pg (25-35) Mean Corpuscular Hemoglobin Concent 33 g/dL (31-37) 33 g/dL (31-37) Red Cell Distribution Width 14.3 % (11.5-14.5) 14.3 % (11.5-14.5) Platelet Count 332 x10^3/uL (140-400) 333 x10^3/uL (140-400) Neutrophils (%) (Auto) 85 % (31-73) 70 % (31-73) Lymphocytes (%) (Auto) 8 % (24-48) 17 % (24-48) Monocytes (%) (Auto) 6 % (0-9) 10 % (0-9) Eosinophils (%) (Auto) 1 % (0-3) 2 % (0-3) Basophils (%) (Auto) 1 % (0-3) 1 % (0-3) Neutrophils # (Auto) 9.0 x10^3uL (1.8-7.7) 7.4 x10^3uL (1.8-7.7) Lymphocytes # (Auto) 0.8 x10^3/uL (1.0-4.8) 1.8 x10^3/uL (1.0-4.8) Monocytes # (Auto) 0.6 x10^3/uL (0.0-1.1) 1.1 x10^3/uL (0.0-1.1) Eosinophils # (Auto) 0.1 x10^3/uL (0.0-0.7) 0.2 x10^3/uL (0.0-0.7) Basophils # (Auto) 0.1 x10^3/uL (0.0-0.2) 0.1 x10^3/uL (0.0-0.2) D-Dimer (Arti) 1.22 ug/mlFEU (0.00-0.50) Sodium Level 142 mmol/L (136-145) 142 mmol/L (136-145) Potassium Level 4.2 mmol/L (3.5-5.1) 3.3 mmol/L (3.5-5.1) Chloride Level 99 mmol/L (98-107) 102 mmol/L (98-107) Carbon Dioxide Level 32 mmol/L (21-32) 31 mmol/L (21-32) Anion Gap 11 (6-14) 9 (6-14) Blood Urea Nitrogen 24 mg/dL (7-20) 19 mg/dL (7-20) Creatinine 1.3 mg/dL (0.6-1.0) 1.1 mg/dL (0.6-1.0) Estimated GFR (Cockcroft-Gault) 39.1 47.4 Glucose Level 164 mg/dL (70-99) 111 mg/dL (70-99) Calcium Level 9.4 mg/dL (8.5-10.1) 9.3 mg/dL (8.5-10.1) Total Bilirubin 0.8 mg/dL (0.2-1.0) Direct Bilirubin 0.2 mg/dL (0.0-0.2) Aspartate Amino Transf (AST/SGOT) 19 U/L (15-37) Alanine Aminotransferase (ALT/SGPT) 25 U/L (14-59) Alkaline Phosphatase 133 U/L (46-116) Troponin I Quantitative < 0.017 ng/mL (0.000-0.055) BD-Kui-V-Type Natriuretic Peptide 96 pg/mL (0-449) Total Protein 7.1 g/dL (6.4-8.2) Albumin 3.5 g/dL (3.4-5.0) Lipase 101 U/L (73-393) Urine Collection Type Unknown Urine Color Yellow Urine Clarity Clear Urine pH 7.0 Urine Specific Cummings 1.015 Urine Protein Negative mg/dL (NEG-TRACE) Urine Glucose (UA) Negative mg/dL (NEG) Urine Ketones (Stick) Negative mg/dL (NEG) Urine Blood Negative (NEG) Urine Nitrite Negative (NEG) Urine Bilirubin Negative (NEG) Urine Urobilinogen Dipstick 1.0 mg/dL (0.2 mg/dL) Urine Leukocyte Esterase Negative (NEG) Urine RBC 0 /HPF (0-2) Urine WBC 0 /HPF (0-4) Urine Squamous Epithelial Cells Few /LPF Urine Bacteria 0 /HPF (0-FEW) Urine Hyaline Casts Few /HPF Urine Mucus Slight /LPF Laboratory Tests Test 04/05/18 12:45 04/05/18 14:00 04/06/18 03:50 White Blood Count 10.6 x10^3/uL (4.0-11.0) 10.6 x10^3/uL (4.0-11.0) Red Blood Count 4.67 x10^6/uL (3.50-5.40) 4.37 x10^6/uL (3.50-5.40) Hemoglobin 14.3 g/dL (12.0-15.5) 13.6 g/dL (12.0-15.5) Hematocrit 43.3 % (36.0-47.0) 40.7 % (36.0-47.0) Mean Corpuscular Volume 93 fL (79-100) 93 fL (79-100) Mean Corpuscular Hemoglobin 31 pg (25-35) 31 pg (25-35) Mean Corpuscular Hemoglobin Concent 33 g/dL (31-37) 33 g/dL (31-37) Red Cell Distribution Width 14.3 % (11.5-14.5) 14.3 % (11.5-14.5) Platelet Count 332 x10^3/uL (140-400) 333 x10^3/uL (140-400) Neutrophils (%) (Auto) 85 % (31-73) 70 % (31-73) Lymphocytes (%) (Auto) 8 % (24-48) 17 % (24-48) Monocytes (%) (Auto) 6 % (0-9) 10 % (0-9) Eosinophils (%) (Auto) 1 % (0-3) 2 % (0-3) Basophils (%) (Auto) 1 % (0-3) 1 % (0-3) Neutrophils # (Auto) 9.0 x10^3uL (1.8-7.7) 7.4 x10^3uL (1.8-7.7) Lymphocytes # (Auto) 0.8 x10^3/uL (1.0-4.8) 1.8 x10^3/uL (1.0-4.8) Monocytes # (Auto) 0.6 x10^3/uL (0.0-1.1) 1.1 x10^3/uL (0.0-1.1) Eosinophils # (Auto) 0.1 x10^3/uL (0.0-0.7) 0.2 x10^3/uL (0.0-0.7) Basophils # (Auto) 0.1 x10^3/uL (0.0-0.2) 0.1 x10^3/uL (0.0-0.2) D-Dimer (Arti) 1.22 ug/mlFEU (0.00-0.50) Sodium Level 142 mmol/L (136-145) 142 mmol/L (136-145) Potassium Level 4.2 mmol/L (3.5-5.1) 3.3 mmol/L (3.5-5.1) Chloride Level 99 mmol/L (98-107) 102 mmol/L (98-107) Carbon Dioxide Level 32 mmol/L (21-32) 31 mmol/L (21-32) Anion Gap 11 (6-14) 9 (6-14) Blood Urea Nitrogen 24 mg/dL (7-20) 19 mg/dL (7-20) Creatinine 1.3 mg/dL (0.6-1.0) 1.1 mg/dL (0.6-1.0) Estimated GFR (Cockcroft-Gault) 39.1 47.4 Glucose Level 164 mg/dL (70-99) 111 mg/dL (70-99) Calcium Level 9.4 mg/dL (8.5-10.1) 9.3 mg/dL (8.5-10.1) Total Bilirubin 0.8 mg/dL (0.2-1.0) Direct Bilirubin 0.2 mg/dL (0.0-0.2) Aspartate Amino Transf (AST/SGOT) 19 U/L (15-37) Alanine Aminotransferase (ALT/SGPT) 25 U/L (14-59) Alkaline Phosphatase 133 U/L (46-116) Troponin I Quantitative < 0.017 ng/mL (0.000-0.055) TW-Raj-O-Type Natriuretic Peptide 96 pg/mL (0-449) Total Protein 7.1 g/dL (6.4-8.2) Albumin 3.5 g/dL (3.4-5.0) Lipase 101 U/L (73-393) Urine Collection Type Unknown Urine Color Yellow Urine Clarity Clear Urine pH 7.0 Urine Specific Cummings 1.015 Urine Protein Negative mg/dL (NEG-TRACE) Urine Glucose (UA) Negative mg/dL (NEG) Urine Ketones (Stick) Negative mg/dL (NEG) Urine Blood Negative (NEG) Urine Nitrite Negative (NEG) Urine Bilirubin Negative (NEG) Urine Urobilinogen Dipstick 1.0 mg/dL (0.2 mg/dL) Urine Leukocyte Esterase Negative (NEG) Urine RBC 0 /HPF (0-2) Urine WBC 0 /HPF (0-4) Urine Squamous Epithelial Cells Few /LPF Urine Bacteria 0 /HPF (0-FEW) Urine Hyaline Casts Few /HPF Urine Mucus Slight /LPF Assessment/Plan Assessment/Plan 1. Shortness of breath: Pulmonary embolism ruled out. Patient does not have any clinical evidence for fluid overload. BNP level normal. Check 2-D echo to assess LV systolic function. Pulmonary team has been consulted 2. Paroxysmal atrial fibrillation presently complaining of intermittent episodes of palpitations that appeared to be mainly with exertion, most probably sinus tachycardia. She is presently in sinus rhythm. Continue to monitor on telemetry. We will consider event monitor as an outpatient. Continue Cardizem. 3. Hyperlipidemia: On statin therapy 4. Hypothyroidism: On levo thyroxine Thank you for your consultation MAGDALENA GARCIA MD Apr 06, 2018 12:43
[2018-04-06] MEDS ORDERED: predniSONE 5 MG TABLET PO SCH (13:00)
[2018-04-06] MEDS ORDERED: LEVOTHYROXINE 100 MCG TABLET PO SCH (13:00)
[2018-04-06] MEDS: POTASSIUM CHLORIDE 20 MEQ TABLET.ER. PO SCH ×2 (13:45→17:33)
[2018-04-06] MEDS: DULoxetine HCL 30 MG CAPSULE.DR PO SCH (13:45)
[2018-04-06] MEDS: MULTIVITAMIN with MINERAL TABLET. PO SCH (13:45)
[2018-04-06] MEDS: CALCIUM CARB/VIT D3 500/200 TABLET. PO SCH (13:45)
[2018-04-06] MEDS: FUROSEMIDE 40 MG TABLET. PO SCH (13:46)
[2018-04-06] MEDS: CELECOXIB 100 MG CAPSULE. PO SCH (13:47)
[2018-04-06] MEDS: SIMVASTATIN 10 MG TABLET PO SCH (21:18)
--- NOTE | 2018-04-06 21:55 | RAD ---
Bilateral lower extremity venous Doppler ultrasound History: Bilateral leg swelling. Comparison: None. Procedure: Color flow Doppler, Doppler spectral analysis, and 2D images are obtained with and without compression in the area of the common femoral vein, superficial femoral vein - femoral vein junction, main femoral vein (superficial femoral vein) and popliteal vein. Veins of the proximal calf are also imaged. Findings: There is normal color flow, augmentation, and compressibility of all visualized vein segments. No evidence of deep venous thrombus is present. IMPRESSION: No evidence of right or left lower extremity deep venous thrombosis. Electronically signed by: Tristen Loving MD (04/06/2018 9:51 PM) [facility]
[2018-04-07] MEDS: HYDROcodone/APAP 7.5/325MG 1 TAB TABLET PO PRN ×4 (01:03→21:06)
[2018-04-07 03:33] VITALS: BP 109/53
[2018-04-07] MEDS: LEVOTHYROXINE 112 MCG TABLET PO SCH (06:19)
[2018-04-07 07:00] VITALS: BP 144/69
[2018-04-07] MEDS: CELECOXIB 100 MG CAPSULE. PO SCH (08:45)
[2018-04-07] MEDS: POTASSIUM CHLORIDE 20 MEQ TABLET.ER. PO SCH ×2 (08:45→17:51)
[2018-04-07] MEDS: MULTIVITAMIN with MINERAL TABLET. PO SCH (08:45)
[2018-04-07] MEDS: CALCIUM CARB/VIT D3 500/200 TABLET. PO SCH (08:45)
[2018-04-07] MEDS: LABETALOL HCL 100 MG TABLET. PO SCH ×2 (08:46→21:06)
[2018-04-07] MEDS: DULoxetine HCL 30 MG CAPSULE.DR PO SCH (08:46)
[2018-04-07] MEDS: FUROSEMIDE 40 MG TABLET. PO SCH ×2 (08:48→13:26)
[2018-04-07] MEDS: predniSONE 10 MG TABLET PO SCH (08:50)
--- NOTE | 2018-04-07 10:45 | CONS ---
DATE OF CONSULTATION: ATTENDING PHYSICIAN: Dr. Leary. REASON FOR CONSULTATION: Chest pain, abnormal chest x-ray. HISTORY OF PRESENT ILLNESS: The patient is an 82-year-old pleasant female who is obese with a BMI of 39. No significant history of tobacco use. She says she had a respiratory tract infection around [place] time and she says the cough did get better. However, she was hospitalized because of pain in between the shoulder blades. She said she has a mild cough. However, the cough she thought may have caused the pain. She developed mild shortness of breath as well. No headaches, no nausea, vomiting or diarrhea noted. No leg edema. No dysuria. No focal weakness. Imaging study was performed. The chest x-ray revealed a parenchymal opacity in the right mid lung about 1.8 cm in size. The patient underwent venous Dopplers, which were negative for DVT. V/Q scan was also reviewed by me. There was no mismatched perfusion defect. There was a questionable less perfusion at the right costophrenic angle, which may be related to the parenchymal opacity. She states the pain has eased up. I have been asked to see her for further evaluation. PAST MEDICAL HISTORY: Significant for AFib, hyperlipidemia, hypertension. PAST SURGICAL HISTORY: Cholecystectomy, hysterectomy and tonsillectomy. MEDICATIONS: All reviewed as listed in the MRAD. ALLERGIES: PENICILLIN, CLONIDINE, AND GABAPENTIN. REVIEW OF SYSTEMS: Twelve-point system obtained. Pertinent positives discussed in my history of present illness, otherwise noncontributory. All systems that were negative were reviewed as well. SOCIAL HISTORY: Nonsmoker. PHYSICAL EXAMINATION: VITAL SIGNS: Reviewed. Pulse ox 94% on 3 liters, afebrile. HEENT: Sclerae nonicteric. NECK: Supple. LUNGS: Diminished breath sounds. CARDIOVASCULAR: Regular rate. ABDOMEN: Soft, obese. EXTREMITIES: With no pitting edema. LABORATORY DATA: Reviewed. White cell count 10.6, hemoglobin 13.6 and platelets are 333. BUN and creatinine is now 19 and 1.1. IMPRESSION: 1. Chest pain between shoulder blades along with some mild dyspnea. She has been recovering from bronchitis and has been coughing. There is no convincing evidence of pulmonary embolism by V/Q scan. Venous Dopplers are negative as well. There is, however, a parenchymal opacity in the right mid lung field, which may be contributing to chest pain and needs to be further explored by CT chest. Clinically, less likely aortic dissection. However, a CTA chest would be reasonable to pursue at this time. 2. There is no significant history of tobacco use. 3. Mild renal insufficiency present on admission, which is improving. 4. Abnormal D-dimer, which could be a nonspecific finding and can be seen in many other etiologies. RECOMMENDATIONS: 1. Discussed with Dr. Contreras, will do a CTA chest. 2. Gentle hydration. 3. Obtain echocardiogram. 4. We will look for any parenchymal density in the right lung on chest CT and also rule out pulmonary embolism. 5. We will hold off on antibiotics at present. 6. Continue oral prednisone. 7. Pain control with hydrocodone p.r.n. GABRIELLA OTTO MD DR: TERRY/devin JOB#: [id number] / [id number]
[2018-04-07 11:00] VITALS: BP 142/83
--- NOTE | 2018-04-07 11:17 | PDOC ---
PROGRESS NOTES Subjective Subjective Feeling better. Denied any palpitations today. Objective Objective Vital Signs Date Time Temp Pulse Resp B/P (MAP) Pulse Ox O2 Delivery O2 Flow Rate FiO2 04/07/18 08:47 80 144/69 04/07/18 08:20 18 94 Nasal Cannula 3.0 04/07/18 07:00 97.8 97.8 Intake and Output 04/07/18 07:01 Intake Total 620 ml Balance 620 ml Intake Oral 620 ml # Voids 5 # Bowel Movements 3 Physical Exam Abdomen: Soft, No tenderness Heart: Regular rate Extremities: No edema General: Alert, mild distress HEENT: Atraumatic Lungs: Other (scattered crepitation bilaterally) Psych/Mental Status: Mood NL Assessment Assessment 1. Shortness of breath: Pulmonary embolism ruled out. Patient does not have any clinical evidence for fluid overload. BNP level normal. Check 2-D echo to assess LV systolic function. Pulmonary team has been consulted 2. Paroxysmal atrial fibrillation presently complaining of intermittent episodes of palpitations that appeared to be mainly with exertion, most probably sinus tachycardia. She is presently in sinus rhythm. Telemetry did not show any significant arrhythmias. We will consider event monitor as an outpatient. Continue Cardizem. 3. Hyperlipidemia: On statin therapy 4. Hypothyroidism: On levo thyroxine Plan Plan of Care Problems Medical Problems: (1) Hypoxia Status: Acute Comment Review of Relevant I have reviewed the following items shantell (where applicable) has been applied. Medications Current Medications Calcium/Vitamin D (Oscal D 500mg/ 200uts) 1 tab DAILYWBKFT PO Last administered on 04/07/18at 08:45; Start 04/06/18 at 13:00 Celecoxib (CeleBREX) 200 mg DAILY PO Last administered on 04/07/18 08:45; Start 04/06/18 at 13:00 Diltiazem HCl (Cardizem 24hr Cd) 300 mg DAILY PO Last administered on 08:47; Start 04/06/18 at 13:00 Duloxetine HCl (Cymbalta) 60 mg DAILY PO Last administered on 04/07/18 08:46; Start 04/06/18 at 13:00 Furosemide (Lasix) 40 mg BID92 PO Last administered on 04/07/18at 08:48; Start 04/06/18 at 14:00 Levothyroxine Sodium (Synthroid) 100 mcg DAILY06 PO ; Start 04/06/18 at 13:00; Stop 04/06/18 at 13:28; Status DC Levothyroxine Sodium (Synthroid) 112 mcg DAILY06 PO Last administered on at 06:19; Start 04/07/18 at 06:00 Multivitamins (Thera M Plus) 1 tab DAILY PO Last administered on 04/07/18at 08: 45; Start 04/06/18 at 13:00 Potassium Chloride (Klor-Con) 20 meq BIDWMEALS PO Last administered on at 08:45; Start 04/06/18 at 13:00 Prednisone (Prednisone) 5 mg DAILY PO ; Start 04/06/18 at 13:00; Stop 04/06/18 at 13:28; Status DC Prednisone (Prednisone) 10 mg DAILY PO Last administered on 04/07/18at 08:50; Start 04/07/18 at 09:00 Simvastatin (Zocor) 10 mg QHS PO Last administered on 04/06/18at 21:18; Start at 21:00 Vitals/I & O Vital Sign - Last 24 Hours 04/06/18 04/06/18 04/06/18 04/06/18 13:46 15:00 17:35 19:58 Temp 98.5 98.2 98.5 98.2 Pulse 88 95 91 Resp 22 17 20 B/P (MAP) 129/44 146/79 (101) 132/66 (88) Pulse Ox 96 94 O2 Delivery Nasal Cannula Nasal Cannula Nasal Cannula O2 Flow Rate 3.0 3.0 3.0 04/06/18 04/06/18 04/06/18 04/07/18 19:59 21:18 23:19 01:03 Temp 98.4 98.4 Pulse 91 89 Resp 20 B/P (MAP) 132/66 136/57 (83) Pulse Ox 94 O2 Delivery Nasal Cannula Nasal Cannula Nasal Cannula O2 Flow Rate 3.0 3.0 3.0 04/07/18 04/07/18 04/07/18 04/07/18 03:33 07:00 07:17 08:20 Temp 97.9 97.8 97.9 97.8 Pulse 81 80 Resp 20 16 20 18 B/P (MAP) 109/53 (71) 144/69 (94) Pulse Ox 94 95 94 94 O2 Delivery Nasal Cannula Nasal Cannula Nasal Cannula Nasal Cannula O2 Flow Rate 3.0 3.0 3.0 3.0 04/07/18 04/07/18 08:46 08:47 Pulse 80 80 B/P (MAP) 144/69 144/69 Intake and Output 04/06/18 04/06/18 04/07/18 15:01 23:01 07:01 Intake Total 180 ml 340 ml 100 ml Balance 180 ml 340 ml 100 ml MAGDALENA GARCIA MD Apr 07, 2018 11:16
--- NOTE | 2018-04-07 13:34 | PN ---
DATE: 04/07/2018 LOCATION: Room 670. SUBJECTIVE: The patient is sleeping soundly throughout the exam. Breathing patterns consistent with underlying obstructive sleep apnea. OBJECTIVE: VITAL SIGNS: Stable. She is afebrile. Case discussed with Pulmonary who is adding a CTA of the chest. CHEST: Reveals decreased breath sounds, but clear. HEART: Regular rate and rhythm. ABDOMEN: Soft, obese, benign. EXTREMITIES: Reveal stable swelling. LABORATORY DATA: Creatinine decreased to 1.1 yesterday and it should be safe to use contrast for imaging. IMPRESSION: Posterior scapular area chest pain, right greater than left with shortness of breath and palpitations and hypoxia starting with what sounds like bronchitis 3 weeks or so ago. PLAN: Continue present care. Pulmonary input appreciated as well as Cardiology. Echo is ordered. LUCIANO ADAMS MD DR: DONOVAN/devin JOB#: [id number] / [id number]
[2018-04-07] MEDS ORDERED: IOHEXOL 300 MG/ML 100ML VIAL. IV ONE (14:15)
[2018-04-07] MEDS ORDERED: CONTRAST GIVEN. MC PRN (14:15)
[2018-04-07 15:00] VITALS: BP 134/68
--- NOTE | 2018-04-07 16:34 | CARD ---
MR#: [id number] Date of Study: 04/07/2018 Ordering Physician: MAGDALENA FINK, Referring Physician: ALVAREZ JEWELL Tech: Imani Matamoros RDCS APPROVED REPORT EXAM: Two-dimensional and M-mode echocardiogram with Doppler and color Doppler. Other Information Quality : FairHR: 87bpm Rhythm : NSR INDICATION Dyspnea 2D DIMENSIONS Left Atrium(2D)3.7 (1.6-4.0cm)IVSd1.1 (0.7-1.1cm) Aortic Root(2D)3.7 (2.0-3.7cm)LVDd4.8 (3.9-5.9cm) LVOT Diameter2.4 (1.8-2.4cm)PWd1.0 (0.7-1.1cm) LVDs3.4 (2.5-4.0cm)FS (%) 29.9 % SV62.8 mlLVEF(%)57.0 (>50%) CO5.4 L/min M-Mode DIMENSIONS Aortic Cusp Exc2.08 (1.5-2.0cm) Aortic Valve AoV Peak Hawk.144.1cm/sAoV VTI27.9cm AO Peak GR.8.3mmHgLVOT VTI 22.29cm AO Mean GR.5mmHgAVA (VTI)3.70cm2 Mitral Valve MV E Htidaxhs32.3cm/sMV [id number] MV A Kgpqkyzf04.5cm/sE/A Ratio0.8 MV A [id number] TDI Lateral E' P. V5.44cm/sMedial E' P. V6.83cm/s E/Lateral E'14.4E/Medial E'11.5 Tricuspid Valve TR P. [id number]/sTR Peak Gr.14mmHg LEFT VENTRICLE The left ventricle is normal size. There is normal left ventricular wall thickness. The left ventricu lar systolic function is normal. The ejection fraction is estimate at 65%. There is normal LV segment al wall motion. Transmitral Doppler flow pattern is Grade I-abnormal relaxation pattern. No left vent ricle thrombus noted on this study. There is no ventricular septal defect visualized. There is no lef t ventricular aneurysm. RIGHT VENTRICLE The right ventricle is normal size. There is normal right ventricular wall thickness. The right ventr icular systolic function is normal. ATRIA The left atrium size is normal. The right atrium size is normal. The interatrial septum is intact wit h no evidence for an atrial septal defect or patent foramen ovale as noted on 2-D or Doppler imaging. AORTIC VALVE The aortic valve is normal in structure and function. Doppler and Color Flow revealed no significant aortic regurgitation. There is no significant aortic valvular stenosis. There is no aortic valvular v egetation. MITRAL VALVE The mitral valve is normal in structure and function. There is no evidence of mitral valve prolapse. There is no mitral valve stenosis. Doppler and Color Flow revealed no mitral valve regurgitation note d. TRICUSPID VALVE The tricuspid valve is normal in structure and function. Doppler and Color Flow revealed trace tricus pid regurgitation. There is no tricuspid valve prolapse or vegetation. There is no tricuspid valve st enosis. PULMONIC VALVE The pulmonary valve is normal in structure and function. Doppler and Color Flow revealed no pulmonic valvular regurgitation. There is no pulmonic valvular stenosis. GREAT VESSELS The aortic root is normal in size. The IVC is normal in size and collapses >50% with inspiration. PERICARDIAL EFFUSION There is no pleural effusion. There is no evidence of significant pericardial effusion. Critical Notification Critical Value: No <Conclusion> Technically difficult study. The left ventricular systolic function is normal. The ejection fraction is estimate at 65%. There is normal LV segmental wall motion. Transmitral Doppler flow pattern is Grade I-abnormal relaxation pattern. Trace tricuspid regurgitation. There is no evidence of significant pericardial effusion. Signed by : Magdalena Fink, Electronically Approved : 04/07/2018 16:32:59
--- NOTE | 2018-04-07 17:03 | RAD ---
PQRS Compliance Statement: One or more of the following individualized dose reduction techniques were utilized for this examination: 1. Automated exposure control 2. Adjustment of the mA and/or kV according to patient size 3. Use of iterative reconstruction technique CT CHEST WITH CONTRAST, PULMONARY ANGIOGRAM History: CP/ ABNORMAL D DIMER Comparison: None. Technique: Helical CT of the chest was performed after the administration of 75 cc of Omnipaque 300 intravenous contrast according to PE protocol. Axial and coronal reconstructions were obtained. 3-D MIP images were constructed to better evaluate the pulmonary arteries. Findings: Pulmonary arteries are adequately opacified. There is no evidence of pulmonary embolism. There is no thoracic aortic dissection. Great vessels are normal caliber. No mediastinal adenopathy. Coronary artery disease. Cardiac size normal, no pericardial effusion. The central airways are patent. Mild bilateral lower lobe atelectasis. No pleural abnormality. Tiny cyst of right kidney. There is old compression fracture of T3 vertebral body. There is advanced degenerative arthropathy of the shoulders. There are partially healed right anterolateral rib fractures. IMPRESSION: There is no pulmonary embolus. Electronically signed by: Tristen Loving MD (04/07/2018 4:59 PM) [facility]
[2018-04-07 19:20] VITALS: BP 143/79
[2018-04-07] MEDS: SIMVASTATIN 10 MG TABLET PO SCH (21:05)
[2018-04-07] MEDS: ALPRAZolam 0.25 MG TABLET PO PRN (21:06)
[2018-04-07 23:40] VITALS: BP 119/51
[2018-04-08 03:11] VITALS: BP 166/82
[2018-04-08] MEDS: LEVOTHYROXINE 112 MCG TABLET PO SCH (06:37)
[2018-04-08] MEDS: HYDROcodone/APAP 7.5/325MG 1 TAB TABLET PO PRN (06:37)
[2018-04-08 07:05] VITALS: BP 139/78
[2018-04-08] MEDS: POTASSIUM CHLORIDE 20 MEQ TABLET.ER. PO SCH ×4 (08:00→17:25)
--- NOTE | 2018-04-08 08:19 | PDOC ---
Provider Note Provider Note vss, no temp, bp ok- cta neg re pe, no lesions of note- K+ low 3.3, echo wnl- will reduce lasix, inc kcl- rehab likely re poor functional status-- after discussion she wants to be DNR- see no other tests to do, may need O2 ALVAREZ JEWELL MD Apr 08, 2018 08:19
--- NOTE | 2018-04-08 08:19 | NUR ---
Chart review done. Spoke w/ RN then pt at bedside. Pt feels decline in status and feels would benefit from PT/OT Eval and Treat. Please order if agree. Addendum: 04/08/18 at 0819 by KE COBURN OT Amended: Links added.
[2018-04-08] MEDS: HYDROcodone/APAP 7.5/325MG 1 TAB TABLET PO SCH ×3 (08:40→17:25)
[2018-04-08] MEDS: MULTIVITAMIN with MINERAL TABLET. PO SCH (08:41)
[2018-04-08] MEDS: DULoxetine HCL 30 MG CAPSULE.DR PO SCH ×2 (08:42→20:16)
[2018-04-08] MEDS: LABETALOL HCL 100 MG TABLET. PO SCH ×2 (08:42→20:17)
[2018-04-08] MEDS: CELECOXIB 100 MG CAPSULE. PO SCH (08:42)
[2018-04-08] MEDS: predniSONE 10 MG TABLET PO SCH (08:43)
[2018-04-08] MEDS: CALCIUM CARB/VIT D3 500/200 TABLET. PO SCH (08:43)
[2018-04-08 10:23] VITALS: BP 144/68
--- NOTE | 2018-04-08 12:32 | PDOC ---
PULMONARY PROGRESS NOTES Subjective no soa, CP improving Vitals Vital Signs Date Time Temp Pulse Resp B/P (MAP) Pulse Ox O2 Delivery O2 Flow Rate FiO2 04/08/18 10:23 97.9 87 20 144/68 (93) 94 Nasal Cannula 2.0 97.9 General: Alert, Oriented X4, No acute distress Lungs: Clear Cardiovascular: S1 Abdomen: Soft Neuro Exam: Alert Extremities: No Edema Skin: Warm Medications Active Scripts Medications Dose Route/Sig Max Daily Dose Days Date Category Prednisone (Prednisone) 10 Mg Tablet 5 Mg PO DAILY 11/04/14 Reported Celebrex (Celecoxib) 200 Mg Capsule 1 Cap PO DAILY 04/24/14 Reported Lasix (Furosemide) 40 Mg Tablet 40 Mg PO BID 09/24/13 Reported Hydrocodone-Apap 7.5-325 (Hydrocodone Bit/Acetaminophen) 1 Each Tablet 1 Each PO Q 6 HRS PRN 07/24/13 Reported Labetalol Hcl 100 Mg Tablet 200 Mg PO BID 07/24/13 Reported Calcium 500 + D Tablet (Calcium Carbonate/Vitamin D3) 1 Each Tablet 1 Each PO DAILY 05/26/13 Reported Centrum Silver Tablet (Multivits-Min/Fa/Lycopene/Lut) 1 Each Tablet 1 Each PO DAILY 05/26/13 Reported Cymbalta (Duloxetine Hcl) 60 Mg Capsule.dr 60 Mg PO DAILY 05/26/13 Reported Levothyroxine Sodium 100 Mcg Tablet 100 Mcg PO DAILY 05/26/13 Reported Simvastatin 10 Mg Tablet 10 Mg PO DAILY 03/04/13 Reported Potassium Chloride 20 Meq Tab.er.prt 20 Meq PO BID 03/04/13 Reported Diltiazem Xt (Diltiazem Hcl) 300 Mg Capsule.er 300 Mg PO DAILY 03/04/[address] CHEST There is no pulmonary embolus. Impression . 1. Chest pain between shoulder blades along with some mild dyspnea. She has been recovering from bronchitis and has been coughing. There is no convincing evidence of pulmonary embolism by V/Q scan. Venous Dopplers are negative as well. CTA with no PE or aortic dissection or nodule. CP likely muscular 2. There is no significant history of tobacco use. 3. Mild renal insufficiency present on admission, which is improving. 4. Abnormal D-dimer, which could be a nonspecific finding and can be seen in many other etiologies. Plan . 1. Pain control 2. Gentle hydration. 3. echocardiogram.. 4. Add PO Abx for bronchitis 6. Continue oral prednisone. GABRIELLA OTTO MD Apr 08, 2018 12:32
[2018-04-08] MEDS: DOXYCYCLINE HYCLATE 100 MG TABLET PO SCH ×2 (13:49→20:18)
[2018-04-08 14:45] VITALS: BP 164/77
--- NOTE | 2018-04-08 14:55 | NUR ---
SW following pt for anticipated dc needs. Chart reviewed. Pt lives at home with family and is currently on 2L oxygen. PT/OT pending. SW will await for PT/OT recommendation to evaluate needs for SNU vs HH. SW will continue to follow. WOODY AGOSTO.
--- NOTE | 2018-04-08 17:53 | PDOC ---
CARDIO Progress Notes Date and Time Date of Service 04/08/18 Vitals Vitals Vital Signs Date Time Temp Pulse Resp B/P (MAP) Pulse Ox O2 Delivery O2 Flow Rate FiO2 04/08/18 17:25 94 Nasal Cannula 2.0 04/08/18 14:45 97.5 69 22 164/77 (106) 97.5 Weight Weight [ ] Input and Output Intake and Output Intake and Output 04/08/18 07:01 Intake Total 1010 ml Output Total 100 ml Balance 910 ml Intake Oral 1010 ml Output Urine Total 100 ml # Voids 1 # Bowel Movements 1 Physical Exam HEENT: Neck Supple W Full Motion Chest: Symmetric LUNGS: Clear to Auscultation Heart: S1S2 Abdomen: Soft N/T Extremities: No Edema Neurology: alert, oriented, follow commands Assessment Assessment 1. Chest pain, non-cardiac. MSK in origin secondary to persistent cough. 2. Dyspnea; PE ruled out. No clinical evidence of CHF. Most probably secondary to bronchitis. Echo showed LVEF 65% 2. PAFIB; having intermittent palpitations. No significant arrhythmias noted on tele. Presently in sinus rhythm. 3. Hyperlipidemia: On statin therapy 4. Hypothyroidism: On levo thyroxine 5. Hypokalemia Recommendations Continue Cardizem for rate control Add ASA for stroke prevention Consider event monitor as an outpatient. Supportive care. PRASANNA MERRILL APRN Apr 08, 2018 17:53
[2018-04-08 19:00] VITALS: BP 163/84
[2018-04-08] MEDS: ALPRAZolam 0.25 MG TABLET PO PRN (20:16)
[2018-04-08] MEDS: LACTOBACILLUS RHAMNOSUS GG 1 CAPSULE. PO SCH (20:16)
[2018-04-08] MEDS: SIMVASTATIN 10 MG TABLET PO SCH (20:18)
[2018-04-08] MEDS: LIDOCAINE (700MG/PATCH) PATCH. TD SCH (21:00)
[2018-04-08 23:00] VITALS: BP 142/63
[2018-04-09 03:00] VITALS: BP 142/69
[2018-04-09] MEDS: HYDROcodone/APAP 7.5/325MG 1 TAB TABLET PO SCH ×4 (03:42→18:22)
[2018-04-09] MEDS: LEVOTHYROXINE 112 MCG TABLET PO SCH (06:20)
[2018-04-09] MEDS: FUROSEMIDE 40 MG TABLET. PO SCH (06:20)
[2018-04-09 07:00] VITALS: BP 147/66
--- NOTE | 2018-04-09 08:13 | PDOC ---
Provider Note Provider Note vss, O2 85 ra, noc study pending- will dc monitor, xr cerv/thor spine re pain- she wishes to go to rehab for a short time, sw in progress- will need O2 from now on, NOT on before ALVAREZ JEWELL MD Apr 09, 2018 08:13
[2018-04-09] MEDS: LIDOCAINE (700MG/PATCH) PATCH. TD SCH (08:15)
[2018-04-09] MEDS: CELECOXIB 100 MG CAPSULE. PO SCH (08:16)
[2018-04-09] MEDS: CALCIUM CARB/VIT D3 500/200 TABLET. PO SCH (08:17)
[2018-04-09] MEDS: MULTIVITAMIN with MINERAL TABLET. PO SCH (08:17)
[2018-04-09] MEDS: ASPIRIN ENTERIC COATED 81 MG TABLET.DR. PO SCH (08:17)
[2018-04-09] MEDS: LABETALOL HCL 100 MG TABLET. PO SCH ×2 (08:17→20:59)
[2018-04-09] MEDS: DOXYCYCLINE HYCLATE 100 MG TABLET PO SCH ×2 (08:17→20:59)
[2018-04-09] MEDS: predniSONE 10 MG TABLET PO SCH (08:18)
[2018-04-09] MEDS: LACTOBACILLUS RHAMNOSUS GG 1 CAPSULE. PO SCH ×2 (08:18→20:59)
[2018-04-09] MEDS: POTASSIUM CHLORIDE 20 MEQ TABLET.ER. PO SCH ×3 (08:18→18:22)
--- NOTE | 2018-04-09 08:47 | PDOC ---
PULMONARY PROGRESS NOTES Subjective NOT MOTE SOA Vitals Vital Signs Date Time Temp Pulse Resp B/P (MAP) Pulse Ox O2 Delivery O2 Flow Rate FiO2 04/09/18 08:17 81 147/66 04/09/18 08:00 Nasal Cannula 1.0 04/09/18 07:00 97.9 20 85 97.9 General: Alert, Oriented X4, No acute distress Lungs: Clear Cardiovascular: S1 Abdomen: Soft Neuro Exam: Alert Extremities: No Edema Skin: Warm Labs Laboratory Tests Test 04/09/18 05:20 Magnesium Level 2.2 mg/dL (1.8-2.4) Laboratory Tests Test 04/09/18 05:20 Magnesium Level 2.2 mg/dL (1.8-2.4) Medications Active Scripts Medications Dose Route/Sig Max Daily Dose Days Date Category Prednisone (Prednisone) 10 Mg Tablet 5 Mg PO DAILY 11/04/14 Reported Celebrex (Celecoxib) 200 Mg Capsule 1 Cap PO DAILY 04/24/14 Reported Lasix (Furosemide) 40 Mg Tablet 40 Mg PO BID 09/24/13 Reported Hydrocodone-Apap 7.5-325 (Hydrocodone Bit/Acetaminophen) 1 Each Tablet 1 Each PO Q 6 HRS PRN 07/24/13 Reported Labetalol Hcl 100 Mg Tablet 200 Mg PO BID 07/24/13 Reported Calcium 500 + D Tablet (Calcium Carbonate/Vitamin D3) 1 Each Tablet 1 Each PO DAILY 05/26/13 Reported Centrum Silver Tablet (Multivits-Min/Fa/Lycopene/Lut) 1 Each Tablet 1 Each PO DAILY 05/26/13 Reported Cymbalta (Duloxetine Hcl) 60 Mg Capsule.dr 60 Mg PO DAILY 05/26/13 Reported Levothyroxine Sodium 100 Mcg Tablet 100 Mcg PO DAILY 05/26/13 Reported Simvastatin 10 Mg Tablet 10 Mg PO DAILY 03/04/13 Reported Potassium Chloride 20 Meq Tab.er.prt 20 Meq PO BID 03/04/13 Reported Diltiazem Xt (Diltiazem Hcl) 300 Mg Capsule.er 300 Mg PO DAILY 03/04/[address] CHEST There is no pulmonary embolus. Impression . 1. Chest pain between shoulder blades along with some mild dyspnea. She has been recovering from bronchitis and has been coughing. There is no convincing evidence of pulmonary embolism by V/Q scan. Venous Dopplers are negative as well. CTA with no PE or aortic dissection or nodule. CP likely muscular 2. There is no significant history of tobacco use. 3. Mild renal insufficiency present on admission, which is improving. 4. Abnormal D-dimer, which could be a nonspecific finding and can be seen in many other etiologies. Plan . AGREE WITH CURRENT RX OK TO TRANSFER OR D/C IN AM 6 MIN WALK TEE MOSQUEDA MD Apr 09, 2018 08:47
--- NOTE | 2018-04-09 10:02 | PDOC ---
NATALIEMARGIEROSA Navarro UPHOLSTERY SEWER 04/09/18 1002: CARDIO Progress Notes Date and Time Date of Service 04/09/2018 Time of Evaluation 0920 Subjective Subjective: No Chest Pain, No shortness of breath, No Palpitations Vitals Vitals Vital Signs Date Time Temp Pulse Resp B/P (MAP) Pulse Ox O2 Delivery O2 Flow Rate FiO2 04/09/18 08:17 81 147/66 04/09/18 08:00 Nasal Cannula 1.0 04/09/18 07:00 97.9 20 85 97.9 Weight Weight [ ] Input and Output Intake and Output Intake and Output 04/09/18 07:01 Intake Total 1920 ml Output Total 400 ml Balance 1520 ml Intake Oral 1920 ml Output Urine Total 400 ml # Voids 4 Laboratory Labs Laboratory Tests Test 04/09/18 05:20 Magnesium Level 2.2 mg/dL (1.8-2.4) Physical Exam HEENT: Neck Supple W Full Motion Chest: Symmetric LUNGS: Clear to Auscultation Heart: S1S2, RRR (no heart monitor) Abdomen: Soft N/T Extremities: No Edema Neurology: alert, oriented, follow commands Assessment Assessment 1. Chest pain, non-cardiac. MSK in origin secondary to persistent cough. 2. Dyspnea; PE ruled out. No clinical evidence of CHF. Most probably secondary to bronchitis. Echo showed LVEF 65% 2. PAFIB; having intermittent palpitations. Was noted in SR, no tele monitor currently 3. Hyperlipidemia: On statin therapy 4. Hypothyroidism: On levo thyroxine 5. Hypokalemia: per PCP Recommendations Continue Cardizem for rate control Add ASA for stroke prevention Consider event monitor as an outpatient.and note afib burden If no recent stress test will consider as an outpt. Follow up in office in 4 weeks. MAGDALENA GARCIA MD 04/10/18 0925: CARDIO Progress Notes Assessment Assessment Patient seen and examined 04/09/18. Agree with RESIDENTIAL SALES CONSULTANT's assessment and plan. Telemetry did not show any significant arrhythmias Plan for Lexiscan nuclear stress test and event monitor as an outpatient ALVARO ESTRADA APRN Apr 09, 2018 10:02 MAGDALENA GARCIA MD Apr 10, 2018 09:25
[2018-04-09 10:41] LABS: CALCIUM 9.4 mg/dL (8.5-10.1); CREATININE 1.1 mg/dL (0.6-1.0); GFR 47.4; POTASSIUM 4.4 mmol/L (3.5-5.1)
[2018-04-09 10:59] VITALS: BP 136/50
--- NOTE | 2018-04-09 11:26 | RAD ---
Thoracic spine, 3 views, 04/09/2018: HISTORY: Pain There are moderate scattered marginal spurs. The patient's known T3 vertebral compression deformity is not clearly visualized radiographically due to its high position in the overlying shoulders. No other fracture or subluxation is evident. IMPRESSION: 1. Moderate multilevel degenerative change. 2. T3 vertebral compression deformity, better demonstrated on the current CT exam. Cervical spine, 3 views, 04/09/2018: There is moderate disc space narrowing at C5-6 and C6-7 with moderate marginal spurring. C7 was not adequately visualized on the lateral view due to the overlying shoulders. There are moderate degenerative changes at multiple facet joints bilaterally. No fracture or dislocation is identified. No prevertebral soft tissue swelling is seen. IMPRESSION: Moderate multilevel degenerative change as described above. Electronically signed by: Dino Rao MD (04/09/2018 11:22 AM) [facility]
[2018-04-09 14:34] VITALS: BP 139/64
[2018-04-09 19:00] VITALS: BP 140/93
[2018-04-09] MEDS: ALPRAZolam 0.25 MG TABLET PO PRN (20:59)
[2018-04-09] MEDS: DULoxetine HCL 30 MG CAPSULE.DR PO SCH (20:59)
[2018-04-09] MEDS: SIMVASTATIN 10 MG TABLET PO SCH (20:59)
[2018-04-09] MEDS ORDERED: PATCH REMOVAL. MC SCH (21:00)
[2018-04-09 22:41] VITALS: BP 129/77
[2018-04-10] MEDS: HYDROcodone/APAP 7.5/325MG 1 TAB TABLET PO SCH ×3 (01:53→11:57)
[2018-04-10 02:42] VITALS: BP 138/76
[2018-04-10] MEDS: LEVOTHYROXINE 112 MCG TABLET PO SCH (05:48)
[2018-04-10] MEDS: FUROSEMIDE 40 MG TABLET. PO SCH (05:48)
[2018-04-10 07:00] VITALS: BP 138/77
[2018-04-10] MEDS: LIDOCAINE (700MG/PATCH) PATCH. TD SCH (07:45)
[2018-04-10] MEDS: CELECOXIB 100 MG CAPSULE. PO SCH (07:45)
[2018-04-10] MEDS: LABETALOL HCL 100 MG TABLET. PO SCH (07:48)
[2018-04-10] MEDS: LACTOBACILLUS RHAMNOSUS GG 1 CAPSULE. PO SCH (07:48)
[2018-04-10] MEDS: CALCIUM CARB/VIT D3 500/200 TABLET. PO SCH (07:49)
[2018-04-10] MEDS: DOXYCYCLINE HYCLATE 100 MG TABLET PO SCH (07:49)
[2018-04-10] MEDS: predniSONE 10 MG TABLET PO SCH (07:49)
[2018-04-10] MEDS: ASPIRIN ENTERIC COATED 81 MG TABLET.DR. PO SCH (07:49)
[2018-04-10] MEDS: POTASSIUM CHLORIDE 20 MEQ TABLET.ER. PO SCH (07:49)
[2018-04-10] MEDS: MULTIVITAMIN with MINERAL TABLET. PO SCH (07:49)
--- NOTE | 2018-04-10 08:05 | PDOC ---
Provider Note Provider Note vss, no change- can go to snc when available, she agrees ALVAREZ JEWELL MD Apr 10, 2018 08:05
--- NOTE | 2018-04-10 08:28 | DISCH ---
DISCHARGE WITH HOME HEALTH DISCHARGE INFORMATION: Final Diagnosis: Problems Medical Problems: (1) Hypoxia Status: Acute Condition on Discharge: Stable CODE STATUS: Code Status: DNR/DNI HOME HEALTH: Face to Face: I certify this patient is under my care and that I, or a nurse practitioner or physician's field assistant working with me, had a face to face encounter that meets the physician face to face encounter requirements with this patient on []. Medical Complications: COPD Physical Therapy For: Evalulation/Treatment Occupational Therapy For: Evaluation/Treatment Home Health Aide For: Self-care COMMERCIAL LINES MANAGER For: Community Resources Pt Meets Homebound Status: Unsteady balance w/ amb, POST DISCHARGE ORDERS: Activity Instructions for Disc: Activity as tolerated DIET AFTER DISCHARGE: Regular FOLLOW-UP: Follow up with: dr levi as needed CERTIFICATION STATEMENT: Certification Statement: Certification Statement: Based on the above finding, I certify that this patient is confined to the home and needs intermittent detention care, physical therapy and/or speech therapy, or continues to need occupational therapy.~ This patient is under my care, and I have initiated the establishment of the plan of care.~ This patient will be followed by myself or a community physician who will periodically review the plan of care. Home Meds Reported Medications Prednisone (PREDNISONE ) 10 Mg Tablet, 5 MG PO DAILY, TAB 11/04/14 Celecoxib (CELEBREX) 200 Mg Capsule, 1 CAP PO DAILY, #30 CAP 2 Refills 04/24/14 Furosemide (LASIX) 40 Mg Tablet, 40 MG PO BID for hypertension 09/24/13 Hydrocodone Bit/Acetaminophen (HYDROCODONE-APAP 7.5-325 ) 1 Each Tablet, 1 EACH PO q 6 hrs prn 07/24/13 Labetalol Hcl (LABETALOL HCL) 100 Mg Tablet, 200 MG PO BID for hypertension 07/24/13 Calcium Carbonate/Vitamin D3 (CALCIUM 500 + D TABLET) 1 Each Tablet, 1 EACH PO DAILY 05/26/13 Multivits-Min/Fa/Lycopene/Lut (CENTRUM SILVER TABLET) 1 Each Tablet, 1 EACH PO DAILY 05/26/13 Duloxetine Hcl (CYMBALTA) 60 Mg Capsule.dr, 60 MG PO DAILY 05/26/13 Levothyroxine Sodium (LEVOTHYROXINE SODIUM) 100 Mcg Tablet, 100 MCG PO DAILY 05/26/13 Simvastatin (SIMVASTATIN) 10 Mg Tablet, 10 MG PO DAILY 03/04/13 Potassium Chloride (POTASSIUM CHLORIDE) 20 Meq Tab.er.prt, 20 MEQ PO BID 03/04/13 Diltiazem Hcl (DILTIAZEM XT) 300 Mg Capsule.er, 300 MG PO DAILY 03/04/13 ALVAREZ JEWELL MD Apr 10, 2018 08:28
--- NOTE | 2018-04-10 08:31 | PDOC ---
Provider Note Provider Note [id number] ALVAREZ JEWELL MD Apr 10, 2018 08:31
--- NOTE | 2018-04-10 08:49 | DS ---
DATE OF DISCHARGE: 04/10/2018 HOSPITAL SUMMARY: An 82-year-old white female with severe degenerative joint disease and rheumatoid arthritis, came in with shortness of breath and general fatigue. CBC and chemistry profile unremarkable. Troponins negative. BNP normal at 96. Urine was clear. D-dimer elevated, but V/Q scan showed low probability of pulmonary embolus. Sonograms of both lower extremities were negative for DVT and then subsequently a chest CT angiogram showed no sign of pulmonary embolus. Neck and thoracic spine x-ray showed evidence of an old T3 fracture and diffuse arthritis, but no other acute changes. She was treated with IV Lasix and oxygen therapy and she did qualify for home oxygen based on a room air saturation of 85% and an oxygen desaturation study nocturnal that is not available to dictate at this time. She was suggested to consider going to rehab, but she and her family prefer that she go home with home health and this will be arranged for her. FINAL DIAGNOSES: 1. Dyspnea secondary to hypoxia. 2. Interstitial lung disease, likely secondary to advanced rheumatoid arthritis. OPERATIONS, PROCEDURES, COMPLICATIONS: None. CONSULTATIONS: Dr. Sheth and Dr. Garcias's group. DISPOSITION: Home meds remain the same. She is a DNR patient by her own choice. Home oxygen will be arranged through Dr. Sheth, office followup with Dr. Leary as needed. Prognosis is guarded because of her multiple medical problems. ALVAREZ LEARY MD DR: ERON/devin JOB#: [id number] / [id number]
--- NOTE | 2018-04-10 08:53 | PDOC ---
PULMONARY PROGRESS NOTES Subjective NOT MOTE SOA Vitals Vital Signs Date Time Temp Pulse Resp B/P (MAP) Pulse Ox O2 Delivery O2 Flow Rate FiO2 04/10/18 07:55 Nasal Cannula 1.5 04/10/18 07:48 81 138/77 04/10/18 07:05 93 04/10/18 07:00 98.2 20 98.2 General: Alert, Oriented X4, No acute distress Lungs: Clear Cardiovascular: S1 Abdomen: Soft Neuro Exam: Alert Extremities: No Edema Skin: Warm Labs Laboratory Tests Test 04/09/18 05:20 Sodium Level 142 mmol/L (136-145) Potassium Level 4.4 mmol/L (3.5-5.1) Chloride Level 104 mmol/L (98-107) Carbon Dioxide Level 30 mmol/L (21-32) Anion Gap 8 (6-14) Blood Urea Nitrogen 17 mg/dL (7-20) Creatinine 1.1 mg/dL (0.6-1.0) Estimated GFR (Cockcroft-Gault) 47.4 Glucose Level 110 mg/dL (70-99) Calcium Level 9.4 mg/dL (8.5-10.1) Magnesium Level 2.2 mg/dL (1.8-2.4) Medications Active Scripts Medications Dose Route/Sig Max Daily Dose Days Date Category Prednisone (Prednisone) 10 Mg Tablet 5 Mg PO DAILY 11/04/14 Reported Celebrex (Celecoxib) 200 Mg Capsule 1 Cap PO DAILY 04/24/14 Reported Lasix (Furosemide) 40 Mg Tablet 40 Mg PO BID 09/24/13 Reported Hydrocodone-Apap 7.5-325 (Hydrocodone Bit/Acetaminophen) 1 Each Tablet 1 Each PO Q 6 HRS PRN 07/24/13 Reported Labetalol Hcl 100 Mg Tablet 200 Mg PO BID 07/24/13 Reported Calcium 500 + D Tablet (Calcium Carbonate/Vitamin D3) 1 Each Tablet 1 Each PO DAILY 05/26/13 Reported Centrum Silver Tablet (Multivits-Min/Fa/Lycopene/Lut) 1 Each Tablet 1 Each PO DAILY 05/26/13 Reported Cymbalta (Duloxetine Hcl) 60 Mg Capsule.dr 60 Mg PO DAILY 05/26/13 Reported Levothyroxine Sodium 100 Mcg Tablet 100 Mcg PO DAILY 05/26/13 Reported Simvastatin 10 Mg Tablet 10 Mg PO DAILY 03/04/13 Reported Potassium Chloride 20 Meq Tab.er.prt 20 Meq PO BID 03/04/13 Reported Diltiazem Xt (Diltiazem Hcl) 300 Mg Capsule.er 300 Mg PO DAILY 03/04/[address] CHEST There is no pulmonary embolus. Impression . 1. Chest pain between shoulder blades along with some mild dyspnea. She has been recovering from bronchitis and has been coughing. There is no convincing evidence of pulmonary embolism by V/Q scan. Venous Dopplers are negative as well. CTA with no PE or aortic dissection or nodule. CP likely muscular 2. There is no significant history of tobacco use. 3. Mild renal insufficiency present on admission, which is improving. 4. Abnormal D-dimer, which could be a nonspecific finding and can be seen in many other etiologies. Plan . D/C HOME RX FOR OXYGEN WRITTEN FOLLOW UP IN OFFICE TEE MOSQUEDA MD Apr 10, 2018 08:53
[2018-04-10] MEDS ORDERED: POTASSIUM CHLORIDE 20 MEQ TABLET.ER. PO SCH (09:00)
--- NOTE | 2018-04-10 10:56 | NUR ---
SW following pt. Pt is discharging today and needs services. Spoke with pt at bedside and pt reported she had used [facility] in the past. ARTEMIO notified Daphne from [facility] who will be assisting in arranging home health. Pt also will do a 6 min walk to evaluate home 02 needs. ARTEMIO notified RN, a signed Rx is needed for oxygen if pt needs home 02. Pt stated she does not need transportation to home. ARTEMIO will continue to follow.
[2018-04-10 11:00] VITALS: BP 126/70
--- NOTE | 2018-04-10 16:03 | NUR ---
Home health orders faxed to [facility] . [facility] and is [facility]. SW provided pt with a tank and informed her to call [facility] after she arrives home so they can provide her with more o2 tanks. Pt is provided phone number for [facility]. Pt's family will hot die picker pt today. WOODY AGOSTO.
--- NOTE | 2018-04-10 16:55 | NUR ---
Discharge Note: CUCA CHAVEZ [address] Discharge instructions and discharge home medications reviewed with Patient and a copy given. All questions have been answered and understanding verbalized. The following instructions and handouts were given: follow up instrution, oxygen tank operation Discontinued lines and drains:20 gauge right AC, tip intact. patient tolerated well. Patient discharged to home with home health via family.
--- NOTE | 2018-04-12 11:08 | RESP ---
DATE OF SERVICE: 04/08/2018 ATTENDING PHYSICIAN: Serge Leary MD The patient underwent nocturnal desaturation study on room air. There were significant periods of oxyhemoglobin desaturation. Total time spent between 80% and 90% was 4 hours and 36 minutes. IMPRESSION: Abnormal nocturnal desaturation study. PLAN OF ACTION: Recommendation, 1. Two liters of oxygen supplementation at bedtime. 2. Polysomnogram. 3. The patient should avoid operating a machine or motor vehicle until the above has been addressed. TEE MOSQUEDA MD DR: SAMUEL/devin JOB#: [id number] / [id number]
== END 2018-04-10 18:23 | disposition home health service (06) | DRG 205 ==
LOC: ER 11:44 → 6 SOUTH 15:16
PROVIDERS: ADMIT Family Medicine; ATTEND Family Medicine
DX: M94.0 Chondrocostal junction syndrome [Tietze] (principal); N17.1 Acute kidney failure with acute cortical necrosis; J84.9 Interstitial pulmonary disease, unspecified; M06.9 Rheumatoid arthritis, unspecified; R09.02 Hypoxemia; I48.0 Paroxysmal atrial fibrillation; E03.9 Hypothyroidism, unspecified; E66.9 Obesity, unspecified; Z68.39 Body mass index [BMI] 39.0-39.9, adult; E78.00 Pure hypercholesterolemia, unspecified; E78.5 Hyperlipidemia, unspecified; E87.6 Hypokalemia; G47.33 Obstructive sleep apnea (adult) (pediatric); I10 Essential (primary) hypertension; J40 Bronchitis, not specified as acute or chronic; K21.9 Gastro-esophageal reflux disease without esophagitis; M79.7 Fibromyalgia; Z90.710 Acquired absence of both cervix and uterus; Z90.49 Acquired absence of other specified parts of digestive tract; Z88.5 Allergy status to narcotic agent; Z88.0 Allergy status to penicillin; Z88.8 Allergy status to other drugs, medicaments and biological substances; Z90.10 Acquired absence of unspecified breast and nipple; Z66 Do not resuscitate
CPT/HCPCS: 36415; 71045; 71275; 72040; 72072; 78582; 80048; 80076; 81001; 83690; 83735; 83880; 84484; 85025; 85379; 93005; 93306; 93970; 94618; 94799; 96360; 96372; 96374; A9540; A9558; J0360; J1650; J7030; J7512; 97110; 97530; 99285-25; G0378

== ENCOUNTER 2020-04-07 21:23 | Inpatient (IN) | payer MEDICARE ==
[~2020-04-07] VITALS: Ht 162.6 cm; Wt 106.1 kg
[~2020-04-07 21:23] MED LIST changes: +ALPR0.254 PO; +CYCL10TA2 PO; +SIMV10TA15 PO; -SIMV10TA3 PO; +VENTOLIN HFA18 GM INH
--- NOTE | 2020-04-07 21:39 | PHYS DOC ---
Past Medical History Past Medical History: A-Fib, Arthritis, High Cholesterol, Hypertension, Other (Polymyalgia rheumatica, anxiety, osteoarthritis, fibromyalgia) Additional Past Medical Histor: back pain Past Surgical History: Cholecystectomy, Hysterectomy, Tonsillectomy Smoking Status: Never Smoker Alcohol Use: None Drug Use: None General Adult HPI: HPI: Patient is a 84-year-old female who presents via EMS from [facility] for hypoactive delirium. Onset was first noticed earlier today without any known inciting event, ingestion or trauma. Nothing known makes better or worse, it is unknown if patient is in any more pain than at baseline. longterm nurse was contacted to provide additional history and reports that when she came on shift approximately 1400 hrs., patient was less active physically and verbally than us ual. This was reported up the chain of command and patient had limited work-up including labs and chest x-ray performed that was concerning for a low potassium of 2.9 and findings consistent with left lower lobe pneumonia. Although patient had not required any more oxygen than usual, patient was not at baseline and so decision was made to call EMS for transport to our facility for further evaluation and treatment. Nurse denies any recent fever, no falls, patient was checked for COVID-19 within past 7 days and negative, there are no cases of COVID-19 at current nursing facility, no reported chest pain, abdominal pain or new neurologic symptoms. Review of Systems: Review of Systems: Fourteen body systems of review of systems have been reviewed. See HPI for pertinent positives and negative responses, other salmon all other systems are negative, non-pertinent or non-contributory Heart Score: HEART Score for Chest Pain: HEART Score for Chest Pain Response (Comments) Value History Slighlty/Non-Suspicious 0 ECG Normal 0 Age > 65 2 Risk Factors >3 Risk Factors or Hx CAD 2 Troponin < Normal Limit 0 Total 4 Risk Factors: Risk Factors: DM, Current or recent (<one month) smoker, HTN, HLP, family history of CAD, obesity. Risk Scores: Score 0 - 3: 2.5% MACE over next 6 weeks - Discharge Home Score 4 - 6: 20.3% MACE over next 6 weeks - Admit for Clinical Observation Score 7 - 10: 72.7% MACE over next 6 weeks - Early Invasive Strategies Allergies: Allergies: Allergies Coded Allergies Type Severity Reaction Last Updated Verified gabapentin Allergy Severe Swelling 07/24/13 Yes amitriptyline Allergy Intermediate 01/15/20 Yes pregabalin Allergy Intermediate 01/15/20 Yes Penicillins Adverse Reaction Intermediate Rash 07/24/13 Yes clonidine Adverse Reaction Intermediate "crazy feeling" 07/24/13 Yes Physical Exam: PE: Constitutional: Spontaneous eye movements, moans to pain, localizing to pain, GCS 13. Pt appears delirious HEENT: Head: Normocephalic and atraumatic. TMs clear, no hemotympanum Conjunctivae and EOM are normal. Pupils are equal, round, and reactive to light. Oropharynx is clear and dry. Poor dentition No hematomas or lacerations or abrasions to face or scalp OP clear, no blood, no malocclusion, dentition intact Nares clear, no nasal septal hematoma Midface stable Neck: C-spine midline nontender, no step-offs Cardiovascular: Normal rate, regular rhythm without rubs or gallops. Patient has 2+ pitting edema to bilateral lower extremities Pulmonary/Chest: No obvious respiratory distress, no increased work of breathing, patient has rales present in bilateral lung bases left worse than right Abdominal: Bowel sounds are normal. Pt exhibits distention. There is no tenderness. Musculoskeletal: No bony tenderness to extremities, no deformities, full ROM extremities Chest wall stable Pelvis stable and non-tender No vertebral TTP and spine without stepoffs Neurological: Pt is alert but not oriented to person place or time Moving all extremities willfully, able to wiggle all fingers and toes Sensation grossly intact Skin: Skin is warm and dry. No abrasions, no lacerations. There are numerous bruises to patient's bilateral and lower extremities in various stages of healing Psychiatric: Behavior is appropriate for situation Current Patient Data: Labs: Laboratory Tests Test 04/07/20 21:40 04/07/20 21:44 04/07/20 22:05 04/07/20 23:10 Urine Collection Type U cath Urine Color Yellow Urine Clarity Clear Urine pH 8.0 Urine Specific [place] 1.010 Urine Protein Negative mg/dL Urine Glucose (UA) Negative mg/dL Urine Ketones (Stick) Negative mg/dL Urine Blood Negative Urine Nitrite Negative Urine Bilirubin Negative Urine Urobilinogen Dipstick 0.2 mg/dL Urine Leukocyte Esterase Large Urine RBC 0 /HPF Urine WBC 20-40 /HPF Urine Squamous Epithelial Cells Occ /LPF Urine Amorphous Sediment Present /HPF Urine Bacteria Moderate /HPF Urine Hyaline Casts Few /HPF Urine Mucus Slight /LPF White Blood Count 11.3 x10^3/uL Red Blood Count 4.23 x10^6/uL Hemoglobin 13.0 g/dL Hematocrit 39.3 % Mean Corpuscular Volume 93 fL Mean Corpuscular Hemoglobin 31 pg Mean Corpuscular Hemoglobin Concent 33 g/dL Red Cell Distribution Width 15.6 % Platelet Count 317 x10^3/uL Neutrophils (%) (Auto) 79 % Lymphocytes (%) (Auto) 13 % Monocytes (%) (Auto) 6 % Eosinophils (%) (Auto) 0 % Basophils (%) (Auto) 1 % Neutrophils # (Auto) 8.9 x10^3/uL Lymphocytes # (Auto) 1.5 x10^3/uL Monocytes # (Auto) 0.7 x10^3/uL Eosinophils # (Auto) 0.0 x10^3/uL Basophils # (Auto) 0.1 x10^3/uL Prothrombin Time 11.7 SEC Prothromb Time International Ratio 0.9 Activated Partial Thromboplast Time 18 SEC Sodium Level 139 mmol/L Potassium Level 2.5 mmol/L Chloride Level 95 mmol/L Carbon Dioxide Level 37 mmol/L Anion Gap 7 Blood Urea Nitrogen 62 mg/dL Creatinine 1.9 mg/dL Estimated GFR (Cockcroft-Gault) 25.1 BUN/Creatinine Ratio 33 Glucose Level 151 mg/dL Calcium Level 9.9 mg/dL Magnesium Level 2.1 mg/dL Total Bilirubin 0.8 mg/dL Aspartate Amino Transf (AST/SGOT) 20 U/L Alanine Aminotransferase (ALT/SGPT) 24 U/L Alkaline Phosphatase 99 U/L Troponin I Quantitative < 0.017 ng/mL [id number]-Type Natriuretic Peptide 329 pg/mL Total Protein 6.7 g/dL Albumin 3.5 g/dL Albumin/Globulin Ratio 1.1 Lactic Acid Level 1.1 mmol/L Vital Signs: Vital Signs Date Time Temp Pulse Resp B/P (MAP) Pulse Ox O2 Delivery O2 Flow Rate FiO2 04/08/20 00:15 98.1 66 20 136/67 (90) 98 98.1 04/07/20 22:58 65 16 100 04/07/20 21:58 67 16 100 04/07/20 21:28 98.6 72 16 161/85 (110) 100 Nasal Cannula 3.0 98.6 EKG: EKG: EKG ordered and interpreted by myself at 2205 hrs. as sinus rhythm at 68 bpm, prolonged FL interval at 264, prolonged QTC at 475 otherwise unremarkable intervals, left axis deviation, no acute ischemic findings, no STEMI Radiology/Procedures: Radiology/Procedures: XR CHEST 1V History: Reason: LLL CRACKLES / Spl. Instructions: / History: Comparison: February 24, 2020 Findings: Low lung volumes. Ill-defined mid and bibasilar opacities most prominent within the left lung base. No pleural effusion. No pneumothorax. Unchanged heart size. Advanced bilateral glenohumeral DJD with chronic appearing dislocations and remodeling of the humeral heads calcified intra-articular loose bodies. Chronic left distal clavicular deformity with widening of the acromioclavicular joint. Impression: 1. Low lung volumes with patchy mid and bibasilar opacities, may represent atelectasis or developing consolidations. Recommend follow-up. Electronically signed by: Rony Epstein DO (04/07/2020 10:36 PM) [facility] [place] CT Head without IV contrast CLINICAL HISTORY: Mentation changes COMPARISON: None. TECHNIQUE: Routine CT of the head without contrast. PQRS compliance statement - One or more of the following individualized dose reduction techniques were utilized for this study: 1. Automated exposure control 2. Adjustment of the mA and/or kV according to patient size 3. Use of iterative reconstruction technique FINDINGS: There is no evidence of hemorrhage, mass or extra-axial fluid collection. Marshall-white differentiation is maintained with no evidence of edema. Subcortical, periventricular as well as deep white matter hypoattenuation likely changes of chronic small vessel disease. There is no mass effect or shift of the intracranial structures. The ventricles and cerebral sulci are prominent for the patients stated age consistent with generalized cerebral volume loss. The cerebellum and brainstem are unremarkable. The calvarium demonstrates no evidence of fracture or focal lesion. There is normal aeration of the visualized paranasal sinuses and mastoid air cells. The visualized portions of the orbits are normal. Atherosclerotic calcifications of the intracranial internal carotid and vertebral arteries is seen. IMPRESSION: 1. No evidence for acute intracranial process. 2. White matter changes likely chronic small vessel disease. 3. Changes of generalized cerebral volume loss. Electronically signed by: Rohit Fraga MD (04/08/2020 12:20 AM) [facility] Course & Med Decision Making: Course & Med Decision Making Pertinent Labs and Imaging studies reviewed. (See chart for details) Patient likely suffering from hypoactive delirium secondary to pneumonia and UTI. IV Rocephin and azithromycin administered Patient also suffering from ELADIO likely due to dehydration in addition to hypokalemia. Patient is an aspiration risk at present, 40 mEq in 1 L normal saline started while in ER Patient unfit for discharge home. Patient's primary care physician who will also serve his hospitalist was contacted and agreed need for admission for continued inpatient medical management Patient stabilized satisfactorily prior to admission to general medical floor Critical Care Time This patient required critical care. Due to the fact that the patient required a significant amount of one on one physician - patient contact time, ordering and review of studies, arranging urgent treatment with development of a management plan, evaluation of patients response to treatment with frequent reassessments, and discussions with other providers this patient required 40 minutes of critical care time. Critical care time was indicated due to the inherent instability and/or potential for instability in this patient. The critical care time that is allocated to this patient is above and beyond any time spent on any other billable procedures performed on this patient. Dragon Disclaimer: Alfredo Disclaimer: This electronic medical record was generated, in whole or in part, using a voice recognition dictation system. Departure Departure Impression: Primary Impression: PNA (pneumonia) Additional Impressions: Hypokalemia ELADIO (acute kidney injury) Acute hypoactive delirium due to multiple etiologies UTI (urinary tract infection) Disposition: 09 ADMITTED INPT THIS HOSP Admitting Physician: Serge Leary Condition: STABLE Referrals: KAILA VASQUEZ MD (PCP) ADOLFO CARABALLO DO Apr 07, 2020 21:39
[2020-04-07 21:47] LABS: BILIRUBIN,URINE NEGATIVE (NEG); CLARITY,URINE CLEAR; COLOR,URINE YELLOW; NITRITE,URINE NEGATIVE (NEG); PROTEIN,URINE NEGATIVE (NEG-TRACE); UROBILINOGEN,URINE 0.2 mg/dL (0.2 mg/dL)
[2020-04-07 21:57] LABS: AMORPHOUS SEDIMENT,UR PRESENT /HPF; BACTERIA,URINE MODERATE /HPF (0-FEW); HYALINE CASTS, URINE FEW /HPF
[2020-04-07 21:58] LABS: RBC,URINE 0 /HPF (0-2); WBC,URINE 20-40 /HPF (0-4)
[2020-04-07 22:04] LABS: BASO # 0.1 x10^3/uL (0.0-0.2); BASO % 1 % (0-3); EOS % 0 % (0-3); HEMATOCRIT 39.3 % (36.0-47.0); LYMPH # 1.5 x10^3/uL (1.0-4.8); LYMPH % 13 % (24-48); MEAN CORPUSCULAR HEMOGLOBIN 31 pg (25-35); MEAN CORPUSCULAR HGB CONC 33 g/dL (31-37); MEAN CORPUSCULAR VOLUME 93 fL (79-100); MONO # 0.7 x10^3/uL (0.0-1.1); MONO % 6 % (0-9); NEUT # 8.9 x10^3/uL (1.8-7.7); NEUT % 79 % (31-73); PLATELET COUNT 317 x10^3/uL (140-400); PROTHROMBIN TIME PATIENT 11.7 SEC (11.7-14.0); RED BLOOD COUNT 4.23 x10^6/uL (3.50-5.40); RED CELL DISTRIBUTION WIDTH 15.6 % (11.5-14.5); WHITE BLOOD COUNT 11.3 x10^3/uL (4.0-11.0)
[2020-04-07 22:27] LABS: ALBUMIN 3.5 g/dL (3.4-5.0); ALBUMIN/GLOBULIN RATIO 1.1 (1.0-1.7); CALCIUM 9.9 mg/dL (8.5-10.1); CREATININE 1.9 mg/dL (0.6-1.0); GFR 25.1; TOTAL BILIRUBIN 0.8 mg/dL (0.2-1.0); TOTAL PROTEIN 6.7 g/dL (6.4-8.2)
[2020-04-07 22:34] LABS: POTASSIUM 2.5 mmol/L (3.5-5.1)
--- NOTE | 2020-04-07 22:39 | RAD ---
XR CHEST 1V History: Reason: LLL CRACKLES / Spl. Instructions: / History: Comparison: February 24, 2020 Findings: Low lung volumes. Ill-defined mid and bibasilar opacities most prominent within the left lung base. N o pleural effusion. No pneumothorax. Unchanged heart size. Advanced bilateral glenohumeral DJD with chronic appearing dislocations and remodeling of the humeral heads calcified intra-articular loose bodies. Chronic left distal clavicular deformity with widening of the acromioclavicular joint. Impression: 1. Low lung volumes with patchy mid and bibasilar opacities, may represent atelectasis or developing consolidations. Recommend follow-up. Electronically signed by: Rony Epstein DO (04/07/2020 10:36 PM) [facility]
[2020-04-07] MEDS ORDERED: AZITHRMYCN 500MG IVPB FOR OMNI 250 ML IV ONE (23:00)
[2020-04-07] MEDS ORDERED: cefTRIAXone IV Push 1 GM VIAL. IVP ONE (23:00)
[2020-04-07] MEDS ORDERED: POTASSIUM CL 40MEQ IN 0.9%NACL 1,000 ML IV ONE (23:15)
[2020-04-08] VITALS (7 sets, daily range): BP systolic 134–159; BP diastolic 53–77
--- NOTE | 2020-04-08 00:15 | NUR ---
Patient admitted from ER per cart to room 404. Admitting diagnosis: pneumonia,UTI,hypokalemia,ELADIO and hypoactive delirium. Patient lives at [facility]. Patient presented with AMS. CXR positive for pneumonia and patient also positive for UTI. Patient unable to answer questions on admission. History obtained from medical records. Patient has no skin breakdown but does have bruising on extremities. Patient is allergic to: PCN,amitriptyline,clonidine,gabapentin and pregabalin. Patient has oxygen on at 3L/min per SC. Patient has extensive medical history. Will continue to monitor.
--- NOTE | 2020-04-08 00:23 | RAD ---
EXAM: CT Head without IV contrast CLINICAL HISTORY: Mentation changes COMPARISON: None. TECHNIQUE: Routine CT of the head without contrast. PQRS compliance statement - One or more of the following individualized dose reduction techniques wer e utilized for this study: 1. Automated exposure control 2. Adjustment of the mA and/or kV according to patient size 3. Use of iterative reconstruction technique FINDINGS: There is no evidence of hemorrhage, mass or extra-axial fluid collection. Marshall-white differentiation is maintained with no evidence of edema. Subcortical, periventricular as w ell as deep white matter hypoattenuation likely changes of chronic small vessel disease. There is no mass effect or shift of the intracranial structures. The ventricles and cerebral sulci are prominent for the patients stated age consistent with generaliz ed cerebral volume loss. The cerebellum and brainstem are unremarkable. The calvarium demonstrates no evidence of fracture or focal lesion. There is normal aeration of the visualized paranasal sinuses and mastoid air cells. The visualized portions of the orbits are normal. Atherosclerotic calcifications of the intracranial internal carotid and vertebral arteries is seen. IMPRESSION: 1. No evidence for acute intracranial process. 2. White matter changes likely chronic small vessel disease. 3. Changes of generalized cerebral volume loss. Electronically signed by: Rohit Fraga MD (04/08/2020 12:20 AM) [facility]
[2020-04-08 08:24] LABS: CALCIUM 9.3 mg/dL (8.5-10.1); CREATININE 1.6 mg/dL (0.6-1.0); GFR 30.6
[2020-04-08 08:31] LABS: POTASSIUM 2.4 mmol/L (3.5-5.1)
--- NOTE | 2020-04-08 08:56 | PDOC ---
Provider Note Date of Service: DATE: 04/08/20 TIME: 08:54 Provider Note [id number] Justifications for Admission Other Justification Dysphagia/ failure to thrive ALVAREZ JEWELL MD Apr 08, 2020 08:56
[2020-04-08] MEDS ORDERED: FUROSEMIDE 40 MG TABLET. PO SCH (09:00)
[2020-04-08] MEDS: ALPRAZolam 0.25 MG TABLET PO SCH ×2 (09:00→19:54)
--- NOTE | 2020-04-08 09:00 | NUR ---
PATIENT SLEEPING, LETHARGIC AND NOT EASILY AROUSED TO VERBAL OR TACTILE STIMULI BUT VSS, HOB ELEVATED PATIENT IS A MOUTH BREATHER, COMFORT MEASURES GIVEN, WILL HOLD AM MEDICATIONS PATIENT IS TOO SLEEPY TO RECEIVE AT THIS TIME.
[2020-04-08] MEDS: CYCLOBENZAPRINE 10 MG TABLET. PO SCH ×2 (09:15→19:54)
--- NOTE | 2020-04-08 09:21 | HP ---
ADMIT DATE: 04/08/2020 CHIEF COMPLAINT: Cough and fever. HISTORY OF PRESENT ILLNESS: An 84-year-old white female who is a resident of a Nursing Center and came in with increasing shortness of breath, cough and fatigue. She was found to have a left lower lobe infiltrate, started on Rocephin and azithromycin. She denies fever, chills, hemoptysis, COVID symptoms or any other new complaints. She also has a really low potassium of 2.5 and oral replacement has been started as well. PAST MEDICAL HISTORY: Medications: Listed per the chart. ALLERGIES: PENICILLINS AND AMITRIPTYLINE. SOCIAL HISTORY: Nonsmoker. . Lives in Nursing Center for now. Lives at home with her daughter. FAMILY HISTORY: Unremarkable. REVIEW OF SYSTEMS: GENERAL: No other complaints. ENT: Within normal limits. NECK: No masses or bruits. LUNGS: Decreased breath sounds, no dullness is noted. CARDIOVASCULAR: Regular rate, no tachycardia. ABDOMEN: Obese, soft, and benign. EXTREMITIES: Good pedal and radial pulses, 1+ edema of the ankles. 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 ASSESSMENT: Left lower lobe pneumonia, community acquired with multiple other medical comorbidities. PLAN: Rocephin and azithromycin and for hypokalemia we will add oral potassium. DNR and comfort care will be continued. ALVAREZ JEWELL MD DR: SAMUEL/devin JOB#: [id number] / [id number]
[2020-04-08] MEDS: predniSONE 10 MG TABLET PO SCH (09:30)
[2020-04-08] MEDS: LABETALOL HCL 100 MG TABLET. PO SCH ×2 (09:30→19:54)
[2020-04-08] MEDS: POTASSIUM CHLORIDE 20 MEQ TABLET.ER. PO SCH ×2 (09:30→19:54)
[2020-04-08] MEDS: POTASSIUM CHLORIDE 10 MEQ TABLET.ER. PO SCH ×3 (10:00→18:00)
[2020-04-08] MEDS: DULoxetine HCL 30 MG CAPSULE.DR PO SCH (10:00)
[2020-04-08] MEDS: CELECOXIB 100 MG CAPSULE. PO SCH (10:00)
--- NOTE | 2020-04-08 10:11 | NUR ---
SW following. Discussed with RN. 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 Pt can return when medically stable, COVID test is required for return - RN notified of need for COVID test. SW will continue to follow.
[2020-04-08] MEDS: cefTRIAXone IV Push 1 GM VIAL. IVP SCH (12:15)
[2020-04-08] MEDS ORDERED: POTASSIUM CHLORIDE 40 MEQ in IV DEXTROSE 5% 1,000 ML IV SCH (13:00)
[2020-04-08] MEDS: POTASSIUM CL 40MEQ IN 0.9%NACL 1,000 ML IV SCH (14:43)
[2020-04-08 15:56] LABS: BASE EXCESS ABG 11 mmol/L (-3-3); HCO3 ABG 36 mmol/L (21-28); PCO2 ABG 49 mmHg (35-46); PO2 ABG 80 mmHg (65-108); SAT O2 ABG 96 % (92-99)
[2020-04-08 15:58] LABS: FIO2 ABG 3L N.C.
[2020-04-08] MEDS: AZITHROMYCIN 250 MG TABLET. PO SCH (16:00)
[2020-04-08] MEDS: RIVAROXABAN 10 MG TABLET. PO SCH (17:00)
--- NOTE | 2020-04-08 18:10 | NUR ---
PATIENT YELLING FROM HER ROOM, UPON ASSESSMENT AND WHEN ASKED WHAT WAS WRONG PATIENT CONTINUED TO SAY "HELP ME", BUT NOT ABLE TO TELL THIS DOWN FILLER WHAT WAS WRONG, PATIENT REPOSITIONED AND SOFT MITTS APPLIED DUE TO PATIENT ATTEMPTS AT PULLING ON IV.
[2020-04-08] MEDS: SIMVASTATIN 10 MG TABLET PO SCH (19:54)
[2020-04-08] MEDS: LACTOBACILLUS RHAMNOSUS GG 1 CAPSULE. PO SCH (19:54)
[2020-04-08] MEDS: HYDROcodone/APAP 7.5/325MG 1 TAB TABLET PO PRN (21:13)
[2020-04-09] MEDS: POTASSIUM CL 40MEQ IN 0.9%NACL 1,000 ML IV SCH (01:25)
[2020-04-09] MEDS: HYDROcodone/APAP 7.5/325MG 1 TAB TABLET PO PRN ×2 (03:27→20:55)
[2020-04-09] MEDS: LEVOTHYROXINE 100 MCG TABLET PO SCH (06:20)
[2020-04-09 07:00] VITALS: BP 149/65
[2020-04-09] MEDS: CELECOXIB 100 MG CAPSULE. PO SCH (08:16)
[2020-04-09] MEDS: POTASSIUM CHLORIDE 10 MEQ TABLET.ER. PO SCH ×3 (08:16→17:11)
[2020-04-09] MEDS: ALPRAZolam 0.25 MG TABLET PO SCH ×2 (08:17→20:55)
[2020-04-09] MEDS: DULoxetine HCL 30 MG CAPSULE.DR PO SCH (08:17)
[2020-04-09] MEDS: LABETALOL HCL 100 MG TABLET. PO SCH ×2 (08:17→20:56)
[2020-04-09] MEDS: LACTOBACILLUS RHAMNOSUS GG 1 CAPSULE. PO SCH ×2 (08:17→20:55)
[2020-04-09] MEDS: POTASSIUM CHLORIDE 20 MEQ TABLET.ER. PO SCH (08:17)
[2020-04-09] MEDS: cefTRIAXone IV Push 1 GM VIAL. IVP SCH (08:18)
[2020-04-09] MEDS: CYCLOBENZAPRINE 10 MG TABLET. PO SCH ×2 (08:18→20:55)
[2020-04-09] MEDS: predniSONE 10 MG TABLET PO SCH (08:18)
--- NOTE | 2020-04-09 08:25 | PDOC ---
Provider Note Date of Service: DATE: 04/09/20 TIME: 08:21 Provider Note more alert now, no temp, abg good/ no acidosis- urine cult neg, BMP ending re low K po replacement continues, pneumonia meds also Justifications for Admission Other Justification Dysphagia/ failure to thrive ALVAREZ JEWELL MD Apr 09, 2020 08:25
--- NOTE | 2020-04-09 09:26 | NUR ---
SW following. Discussed with RN, pt from [facility], 3L, full liquid diet. COVID test not done yesterday, RN obtaining today. SW faxed clinicals to [facility]. ARTEMIO will continue to follow.
[2020-04-09 09:58] LABS: CALCIUM 8.9 mg/dL (8.5-10.1); CREATININE 1.4 mg/dL (0.6-1.0); GFR 35.7
[2020-04-09 11:00] VITALS: BP 137/63
[2020-04-09 15:00] VITALS: BP 140/61
[2020-04-09] MEDS: AZITHROMYCIN 250 MG TABLET. PO SCH (16:00)
[2020-04-09] MEDS: RIVAROXABAN 10 MG TABLET. PO SCH (16:18)
[2020-04-09 19:00] VITALS: BP 156/70
[2020-04-09] MEDS: SIMVASTATIN 10 MG TABLET PO SCH (20:55)
[2020-04-09 23:00] VITALS: BP 140/71
[2020-04-10 03:00] VITALS: BP 146/70
[2020-04-10] MEDS: LEVOTHYROXINE 100 MCG TABLET PO SCH (05:27)
[2020-04-10 07:00] VITALS: BP 174/79
[2020-04-10] MEDS: POTASSIUM CHLORIDE 10 MEQ TABLET.ER. PO SCH ×3 (09:29→18:05)
[2020-04-10] MEDS: CYCLOBENZAPRINE 10 MG TABLET. PO SCH ×2 (09:29→21:11)
[2020-04-10] MEDS: CELECOXIB 100 MG CAPSULE. PO SCH (09:29)
[2020-04-10] MEDS: predniSONE 10 MG TABLET PO SCH (09:30)
[2020-04-10] MEDS: DULoxetine HCL 30 MG CAPSULE.DR PO SCH (09:30)
[2020-04-10] MEDS: LABETALOL HCL 100 MG TABLET. PO SCH ×2 (09:30→21:12)
[2020-04-10] MEDS: LACTOBACILLUS RHAMNOSUS GG 1 CAPSULE. PO SCH ×2 (09:30→21:12)
[2020-04-10] MEDS: ALPRAZolam 0.25 MG TABLET PO SCH ×2 (09:30→21:12)
[2020-04-10] MEDS: cefTRIAXone IV Push 1 GM VIAL. IVP SCH (09:31)
[2020-04-10 11:00] VITALS: BP 124/57
[2020-04-10 15:00] VITALS: BP 145/64
--- NOTE | 2020-04-10 16:14 | PN ---
DATE: 04/10/2020 LOCATION: She is in room 404. SUBJECTIVE: This 84-year-old white female remains hospitalized for urinary tract infection, possible left lower lobe pneumonia, confusion and profound hypokalemia. She is awake and alert. Recognizes me, even her normal primary care physician. However, is very concerned about not remembering all the events of the last couple of days. I tried to reassure her that she was ill and just to forget about it, hopefully going forward, she will remember everything. OBJECTIVE: VITAL SIGNS: Stable. She is afebrile. She is also concerned about her blood pressure of 170 systolic this morning, told her that was only one reading and most have been good. CHEST: Reveals distant breath sounds. HEART: Regular. ABDOMEN: Benign. LABORATORY DATA: Initial white count was 11,300 with a left shift. Potassium yesterday morning was 3.0 with replacement and we will checked tomorrow with replacement ongoing. Creatinine had decreased to 1.4 yesterday. Urine today shows less than 10,000 colony-forming units per mL, not indicative of infection. IMPRESSION: Left lower lobe pneumonia, confusion, hypokalemia, acute kidney injury, hypothyroidism, history of atrial fibrillation. PLAN: Continue supportive care with potassium replacement, IV antibiotics. We will again recheck labs in the morning. She remains on 3 liters per nasal cannula oxygen with good O2 sats presently. I did speak with her daughter on the phone, in addition while I was in the room. LUCIANO ADAMS MD DR: DONOVAN/devin JOB#: [id number] / [id number]
[2020-04-10] MEDS: RIVAROXABAN 10 MG TABLET. PO SCH (18:05)
[2020-04-10 19:00] VITALS: BP 155/69
[2020-04-10] MEDS: SIMVASTATIN 10 MG TABLET PO SCH (21:12)
[2020-04-10 23:10] VITALS: BP 160/75
[2020-04-11] MEDS: HYDROcodone/APAP 7.5/325MG 1 TAB TABLET PO PRN ×3 (04:20→21:11)
[2020-04-11] MEDS: LEVOTHYROXINE 100 MCG TABLET PO SCH (06:09)
[2020-04-11 07:00] VITALS: BP 114/48
[2020-04-11] MEDS: CYCLOBENZAPRINE 10 MG TABLET. PO SCH ×2 (07:59→21:10)
[2020-04-11] MEDS: DULoxetine HCL 30 MG CAPSULE.DR PO SCH (07:59)
[2020-04-11] MEDS: POTASSIUM CHLORIDE 10 MEQ TABLET.ER. PO SCH ×3 (08:00→17:08)
[2020-04-11] MEDS: LACTOBACILLUS RHAMNOSUS GG 1 CAPSULE. PO SCH ×2 (08:01→21:09)
[2020-04-11] MEDS: CELECOXIB 100 MG CAPSULE. PO SCH (08:01)
[2020-04-11] MEDS: ALPRAZolam 0.25 MG TABLET PO SCH ×2 (08:01→21:10)
[2020-04-11] MEDS: predniSONE 10 MG TABLET PO SCH (08:01)
[2020-04-11] MEDS: LABETALOL HCL 100 MG TABLET. PO SCH ×2 (08:10→21:10)
[2020-04-11] MEDS: cefTRIAXone IV Push 1 GM VIAL. IVP SCH (08:14)
[2020-04-11 08:47] LABS: CREATININE 0.9 mg/dL (0.6-1.0); GFR 59.5; POTASSIUM 3.7 mmol/L (3.5-5.1)
[2020-04-11 11:00] VITALS: BP 143/62
[2020-04-11] MEDS ORDERED: ALPRAZolam 0.25 MG TABLET PO PRN (11:00)
[2020-04-11 15:00] VITALS: BP 151/68
[2020-04-11] MEDS: RIVAROXABAN 10 MG TABLET. PO SCH (17:08)
[2020-04-11 19:00] VITALS: BP 154/68
[2020-04-11] MEDS: SIMVASTATIN 10 MG TABLET PO SCH (21:10)
--- NOTE | 2020-04-11 21:32 | PN ---
DATE: 04/11/2020 LOCATION: She is in room 404. SUBJECTIVE: This 84-year-old white female remains hospitalized for probable left lower lobe pneumonia. She was initially confused and profoundly hypokalemic. She is awake and alert this morning, completely oriented. States she is weepy and not sure why. OBJECTIVE: VITAL SIGNS: Stable. She is afebrile. CHEST: Reveals distant breath sounds. HEART: Regular. ABDOMEN: Benign. Her acute kidney injury has completely resolved with a BUN of 23 and creatinine 0.9 this morning as compared to 62 and 1.9 on admission, hypokalemia has resolved with it being as low as 2.4 with it being 3.7 this morning. Sodium is still just a little bit elevated at 146. IMPRESSION: 1. Left lower lobe pneumonia with clinical improvement. 2. Encephalopathy, resolved. 3. Hypokalemia, resolved. 4. Acute kidney injury, resolved. 5. Hypothyroidism. 6. History of atrial fibrillation. PLAN: We will continue present supportive care and IV antibiotics. She continues to improve and expect we will see more the same. LUCIANO ADAMS MD DR: DONOVAN/devin JOB#: [id number] / [id number]
[2020-04-11 23:00] VITALS: BP 142/70
[2020-04-12] MEDS: LEVOTHYROXINE 100 MCG TABLET PO SCH (06:20)
[2020-04-12 07:00] VITALS: BP 138/64
--- NOTE | 2020-04-12 08:21 | SNU/HH DC ---
DISCHARGE ORDERS DISCHARGE INFORMATION: FINAL DIAGNOSIS Problems Medical Problems: (1) Acute hypoactive delirium due to multiple etiologies Status: Acute (2) ELADIO (acute kidney injury) Status: Acute (3) Hypokalemia Status: Acute (4) PNA (pneumonia) Status: Acute (5) UTI (urinary tract infection) Status: Acute CONDITION ON DISCHARGE: Stable CODE STATUS: Code Status: DNR/DNI POST DISCHARGE ORDERS: ACTIVITY ORDERS: Activity as tolerated WEIGHT BEARING STATUS: As tolerated DIET AFTER DISCHARGE: Regular CHECKS AFTER DISCHARGE: CHECKS AFTER DISCHARGE: Check blood press - daily, Weigh Yourself Daily TREATMENT/EQUIPMENT ORDERS: ADAPTIVE EQUIPMENT NEEDED: None Physical Therapy For: Evalulation/Treatment Occupational Therapy For: Evaluation/Treatment DISCHARGE MEDICATIONS: Home Meds Reported Medications Albuterol Sulfate (VENTOLIN HFA INHALER) 18 Gm Hfa.aer.ad, 2 PUFF INH BID for FOR ASTHMA, INHALER 0 Refills 01/13/20 Cyclobenzaprine Hcl (CYCLOBENZAPRINE HCL) 10 Mg Tablet, 1 TAB PO BID for muscle spasms, #90 TAB 01/13/20 Alprazolam (ALPRAZOLAM) 0.25 Mg Tablet, 1 TAB PO BID for anxiety, #60 TAB 01/13/20 Simvastatin (SIMVASTATIN) 10 Mg Tablet, 1 TAB PO QHS for Cholesterol 01/13/20 Prednisone (PREDNISONE ) 10 Mg Tablet, 15 MG PO DAILY for Arthitis, TAB 11/04/14 Celecoxib (CELEBREX) 200 Mg Capsule, 1 CAP PO DAILY, #30 CAP 2 Refills 04/24/14 Furosemide (LASIX) 40 Mg Tablet, 40 MG PO BID for hypertension 09/24/13 Hydrocodone Bit/Acetaminophen (HYDROCODONE-APAP 7.5-325 ) 1 Each Tablet, 1 EACH PO q 6 hrs prn 07/24/13 Labetalol Hcl (LABETALOL HCL) 100 Mg Tablet, 200 MG PO BID for hypertension 07/24/13 Calcium Carbonate/Vitamin D3 (CALCIUM 500 + D TABLET) 1 Each Tablet, 1 EACH PO DAILY 05/26/13 Multivits-Min/Fa/Lycopene/Lut (CENTRUM SILVER TABLET) 1 Each Tablet, 1 EACH PO DAILY 05/26/13 Duloxetine Hcl (CYMBALTA) 60 Mg Capsule.dr, 60 MG PO DAILY 05/26/13 Levothyroxine Sodium (LEVOTHYROXINE SODIUM) 100 Mcg Tablet, 100 MCG PO DAILY 05/26/13 Potassium Chloride (POTASSIUM CHLORIDE) 20 Meq Tab.er.prt, 20 MEQ PO BID 03/04/13 Diltiazem Hcl (DILTIAZEM XT) 300 Mg Capsule.er, 300 MG PO DAILY 03/04/13 ALVAREZ JEWELL MD Apr 12, 2020 08:21
--- NOTE | 2020-04-12 08:25 | PDOC ---
Provider Note Date of Service: DATE: 04/12/20 TIME: 08:25 Provider Note [id number] Justifications for Admission Other Justification Dysphagia/ failure to thrive ALVAREZ JEWELL MD Apr 12, 2020 08:25
[2020-04-12] MEDS ORDERED: CEFDINIR 300 MG CAPSULE PO SCH (09:00)
--- NOTE | 2020-04-12 09:03 | DS ---
DATE OF DISCHARGE: 04/12/2020 HOSPITAL SUMMARY: An 84-year-old white female with multiple medical problems who came in with weakness and fatigue. Potassium is low at 2.4. Otherwise, chemistry function was normal except for GFR down to 30 and creatinine 1.6. Creatinine was 0.9, GFR 60 at time of dismissal. CBC unremarkable. Urine showed some white blood cells, but nothing grew on culture. Chest x-ray showed mild bibasilar opacities suspicious for mild pneumonia versus atelectasis. Head CT was normal. She was treated with IV fluids and IV and oral potassium and renal function improved, blood pressure improved and potassium levels came back up as well. At the time of dismissal, she is feeling better and stable to be followed as an outpatient at this point. FINAL DIAGNOSES: 1. Acute kidney injury secondary to vasomotor nephropathy. 2. Hypokalemia secondary to diuretic use. 3. Left lower lobe pneumonia, treated community acquired. OPERATIONS, PROCEDURES, COMPLICATIONS, CONSULTATIONS: None. DISPOSITION: She will continue on Omnicef 300 mg twice a day for 3 more days. Cut her furosemide down to once daily to prevent dehydration and hypokalemia and rest of meds will remain the same. She is a DNR patient, comfort care measures. ALVAREZ JEWELL MD DR: ERON/nts JOB#: [id number] / [id number]
--- NOTE | 2020-04-12 09:26 | NUR ---
ARTEMIO following. Discussed with RN, discharge orders for pt to return to [facility]. ARTEMIO phoned and faxed discharge orders - awaiting stretcher transportation time. ARTEMIO will continue to follow. Addendum: 04/12/20 at 1222 by MONICA ULLOA Transportation arranged by [facility] for [id number]. RN notified.
[2020-04-12] MEDS: ALPRAZolam 0.25 MG TABLET PO SCH (09:45)
[2020-04-12] MEDS: CYCLOBENZAPRINE 10 MG TABLET. PO SCH (09:45)
[2020-04-12] MEDS: LACTOBACILLUS RHAMNOSUS GG 1 CAPSULE. PO SCH (09:45)
[2020-04-12] MEDS: DULoxetine HCL 30 MG CAPSULE.DR PO SCH (09:45)
[2020-04-12] MEDS: LABETALOL HCL 100 MG TABLET. PO SCH (09:46)
[2020-04-12] MEDS: predniSONE 10 MG TABLET PO SCH (09:46)
[2020-04-12] MEDS: HYDROcodone/APAP 7.5/325MG 1 TAB TABLET PO PRN (09:46)
[2020-04-12] MEDS: CELECOXIB 100 MG CAPSULE. PO SCH (09:46)
[2020-04-12] MEDS ORDERED: ANTI-COAG MONITOR BY PHARMACY. MC PRN (10:00)
[2020-04-12 11:00] VITALS: BP 162/72
--- NOTE | 2020-04-12 14:00 | NUR ---
PT DISCHARGED TO [facility]. CALLED AND GAVE REPORT TO CELINE. IV REMOVED. PT DRESSED. TRANSFERRED TO [facility] AND WAS TAKEN BY TRANSPORTATION.
== END 2020-04-12 14:03 | DRG 177 ==
LOC: ER 21:23 → 4 NORTH 22:45
PROVIDERS: ADMIT Family Medicine; ATTEND Family Medicine
DX: J15.6 Pneumonia due to other Gram-negative bacteria (principal); N17.0 Acute kidney failure with tubular necrosis; F05 Delirium due to known physiological condition; G93.40 Encephalopathy, unspecified; N39.0 Urinary tract infection, site not specified; J18.9 Pneumonia, unspecified organism; E03.9 Hypothyroidism, unspecified; E78.00 Pure hypercholesterolemia, unspecified; E87.6 Hypokalemia; I10 Essential (primary) hypertension; I48.91 Unspecified atrial fibrillation; M35.3 Polymyalgia rheumatica; M79.7 Fibromyalgia; T50.2X5A Adverse effect of carbonic-anhydrase inhibitors, benzothiadiazides and other diuretics, initial encounter; Z66 Do not resuscitate; Z90.710 Acquired absence of both cervix and uterus; F41.9 Anxiety disorder, unspecified; M19.90 Unspecified osteoarthritis, unspecified site; Z90.49 Acquired absence of other specified parts of digestive tract; Z88.0 Allergy status to penicillin; Z88.8 Allergy status to other drugs, medicaments and biological substances
CPT/HCPCS: 36415; 36600; 70450; 71045; 80048; 80053; 81001; 82805; 83605; 83735; 83880; 84484; 85007; 85025; 85610; 85730; 87086; 87426; 93005; 96365; 96368; 96375; J0456; J0696; J3480; J7512; U0003; 99291-25; G0378

== ENCOUNTER 2020-08-04 21:45 | Emergency (ER) | payer MEDICARE ==
[~2020-08-04] VITALS: Ht 170.2 cm; Wt 111.3 kg
--- NOTE | 2020-08-05 00:58 | PHYS DOC ---
Past Medical History Past Medical History: A-Fib, Arthritis, High Cholesterol, Hypertension, Other Additional Past Medical Histor: MAJOY DEPRESSIVE DISORDER, OA, FIBROMYALGIA, OPOID DEPENDENCE, RIGHT PUBIS Past Surgical History: Other Additional Past Surgical Histo: UNKNOWN Smoking Status: Never Smoker Alcohol Use: None Drug Use: None General Adult EDM: Chief Complaint: DIARRHEA HPI: HPI: Patient is a 85 year old female presenting via EMS for diarrhea. States she has no complaints, has had x1 day of "looser stools than usual but not diarrhea". Reports he nurse at [facility] was concerned and wanted her evaluated. Patient reports she tried to tell nurse she did not want to come but they called EMS anyways. She states she has had "maybe 1 or 2" looser stools than usual. Non- malodorous, no froth or concerning floating materials, no fever, no risk factors for c. diff such as recent hospitalization/sick contacts/antibiotic use. She has history of constipation and uses miralax daily. Review of Systems: Review of Systems: Constitutional: Denies fever or chills. [] Eyes: Denies change in visual acuity. [] HENT: Denies nasal congestion or sore throat. [] Respiratory: Denies cough or shortness of breath. [] Cardiovascular: Denies chest pain or edema. [] GI: Denies abdominal pain, nausea, vomiting, bloody stools or diarrhea. [] : Denies dysuria. [] Musculoskeletal: Denies back pain or joint pain. [] Integument: Denies rash. [] Neurologic: Denies headache, focal weakness or sensory changes. [] Endocrine: Denies polyuria or polydipsia. [] Lymphatic: Denies swollen glands. [] Psychiatric: Denies depression or anxiety. [] Heart Score: C/O Chest Pain: No Risk Factors: Risk Factors: DM, Current or recent (<one month) smoker, HTN, HLP, family history of CAD, obesity. Risk Scores: Score 0 - 3: 2.5% MACE over next 6 weeks - Discharge Home Score 4 - 6: 20.3% MACE over next 6 weeks - Admit for Clinical Observation Score 7 - 10: 72.7% MACE over next 6 weeks - Early Invasive Strategies Allergies: Allergies: Allergies Coded Allergies Type Severity Reaction Last Updated Verified gabapentin Allergy Severe Swelling 07/24/13 Yes Penicillins Allergy Intermediate Rash 04/08/20 Yes amitriptyline Allergy Intermediate 01/15/20 Yes pregabalin Allergy Intermediate 01/15/20 Yes clonidine Adverse Reaction Intermediate "crazy feeling" 07/24/13 Yes Physical Exam: PE: Constitutional: Well developed, well nourished, no acute distress, non-toxic appearance. [] HENT: Normocephalic, atraumatic, bilateral external ears normal, oropharynx moist, no oral exudates, nose normal. [] Eyes: PERRLA, EOMI, conjunctiva normal, no discharge. [] Neck: Normal range of motion, no tenderness, supple, no stridor. [] Cardiovascular:Heart rate regular rhythm, no murmur [] Lungs & Thorax: Bilateral breath sounds clear to auscultation [] Abdomen: Bowel sounds normal, soft, no tenderness, no masses, no pulsatile masses. [] Skin: Warm, dry, no erythema, no rash. [] Back: No tenderness, no CVA tenderness. [] Extremities: No tenderness, no cyanosis, no clubbing, ROM intact, significant 3+ edema to lower extremities, 2+ in upper that is chronic per patient [] Neurologic: Alert and oriented X 3, normal motor function, normal sensory function, no focal deficits noted. [] Psychologic: Affect normal, judgement normal, mood normal. [] Current Patient Data: Vital Signs: Vital Signs Date Time Temp Pulse Resp B/P (MAP) Pulse Ox O2 Delivery O2 Flow Rate FiO2 08/05/20 00:18 90 19 175/74 (107) 96 Nasal Cannula 3.0 08/04/20 22:20 98.7 98.7 EKG: EKG: [] Radiology/Procedures: Radiology/Procedures: [] Course & Med Decision Making: Course & Med Decision Making VSS. HPI and PE non-concerning for emergent/surgical issues. I offered ALEE, stool cultures, lab workup etc but patient deferred She has full capacity. She is upset she was sent to hospital. She states she can be seen by her PCP by end of the week for evaluation. Given looser stools than usual, I recommended she hold Miralax until she is seen and evaluated by her PCP Strict return precautions discussed with good understanding prior to ER departure Alfredo Disclaimer: Alfredo Disclaimer: This electronic medical record was generated, in whole or in part, using a voice recognition dictation system. Departure Departure Impression: Primary Impression: Diarrhea Additional Impression: Hypertension Disposition: HOME / SELF CARE / HOMELESS Condition: STABLE Referrals: ALVAREZ JEWELL MD (PCP) Patient Instructions: Diarrhea Additional Instructions: As discussed prior to ER departure, you were sent to our facility at the request of your nurse for evaluation of constipation. Your vital signs and physical examination was unremarkable. We discussed role of continued ER comprehensive diagnostic work-up that included labs, potential imaging and stool studies but you deferred. Given that you have no concerning exposures, ingestions, contacts with C. difficile etc., decision was made as mention to defer testing at this time and to revert back to your primary care physician to to resolve this issue further. You have not suffered any diarrhea while in our ER. You are on MiraLAX at home, this could be contributing to your looser stools. It might be salmon to hold this medication until further notice until you are evaluated by your primary care physician. As discussed, strict return precautions were reviewed and if any concerning signs or symptoms present do not hesitate to come back for repeat evaluation. It was a pleasure to take care of you and I wish you the best going forward ADOLFO CARABALLO DO August 05, 2020 00:58
[2020-08-05 02:30] VITALS: BP 144/64
== END 2020-08-05 02:38 | disposition home or self-care (01) ==
LOC: ER 21:45
DX: R19.7 Diarrhea, unspecified (principal); I10 Essential (primary) hypertension; E78.00 Pure hypercholesterolemia, unspecified; I48.91 Unspecified atrial fibrillation; Z88.0 Allergy status to penicillin; Z88.8 Allergy status to other drugs, medicaments and biological substances
CPT/HCPCS: 99285-25